=== PATIENT | male | born 1980 | race Caucasian/White ===

== ENCOUNTER 2023-07-01 23:39 | Emergency (ER) | payer BC, SELFPAY ==
--- NOTE | 2023-07-01 | ECG_ITS ---
Test Reason : HYPERTENSION Blood Pressure : / mmHG Vent. Rate : 083 BPM Atrial Rate : 083 BPM P-R Int : 176 ms QRS Dur : 090 ms QT Int : 356 ms P-R-T Axes : 024 021 029 degrees QTc Int : 418 ms Normal sinus rhythm Nonspecific ST and T wave abnormality Abnormal ECG No previous ECGs available Referred By: Generic ED Physician Electronically Signed By:JOSELINE ORTIZ MD
[2023-07-01 23:41] VITALS: BP 182/106; PULSE 92; RESP 18; TEMP 36.8; O2SAT 98; BMI 33.8
[2023-07-02] LABS: MANUAL DIFF FLAG NO
[2023-07-02 00:04] LABS: Basophils Percent Auto 0.5 % (0-2); Eosinophils Absolute Auto 0.1 X10*3/uL (0.0-0.4); Eosinophils Percent Auto 1.3 % (0-4); Hematocrit 43.9 % (42.0-52.0); Hemoglobin 14.2 g/dl (14.0-18.0); Imm Gran Abs Auto 0.02 X10*3/uL (0.00-0.03); Imm Gran Pct Auto 0.2 % (0.0-0.4); Lymphocytes Absolute Auto 2.3 X10*3/uL (1.2-4.9); Lymphocytes Percent Auto 26.6 % (20-40); Mean Corpuscular HGB Conc 32.3 g/dl (31.0-36.0); Mean Corpuscular Volume 77.4 fL (80.0-98.0); Mean Platelet Volume 9.6 fL (9.4-12.4); Monocytes Absolute Auto 0.8 X10*3/uL (0.1-1.2); Monocytes Percent Auto 8.6 % (2-11); Neutrophils Absolute Auto 5.5 x10*3/uL (2.0-8.3); Neutrophils Percent Auto 62.8 % (45-73); Platelet Count 258 X10*3/uL (160-400); Red Blood Count 5.67 X10*6/uL (4.60-5.80); Red Cell Distribution Width 13.8 % (11.0-16.0); White Blood Count 8.8 X10*3/uL (4.8-10.8)
[2023-07-02 00:15] LABS: Alanine Aminotransferase 26 U/L (0-40); Albumin Level 4.3 g/dL (3.5-5.0); Alkaline Phosphatase 113 U/L (39-117); Anion Gap 14 (12-20); Aspartate Amino Transferase 15 U/L (5-37); Bilirubin Total 0.6 mg/dL (0.0-1.0); Blood Urea Nitrogen 11 mg/dL (9-16); Calcium 9.5 mg/dL (8.4-10.2); Carbon Dioxide 24 mmol/L (22-29); Chloride 108 mmol/L (96-108); Creatinine Clr Calc Pharmacy 109.5; Estimated Glomerular Filt Rate > 60; Glucose Random 145 mg/dL (60-115); Sodium 142 mmol/L (135-145); Total Protein 7.5 g/dL (6.5-8.0)
--- NOTE | 2023-07-02 02:11 | ED_ITS ---
HPI - General Adult General Chief complaint: General Medical Stated complaint: high BP Time Seen by Provider: 07/02/23 02:04 Source: patient Mode of arrival: ambulatory Limitations: no limitations History of Present Illness HPI narrative: Patient history of hypertension on benazepril 20 and amlodipine 10 mg for long time with stable blood pressure for last 1 week notice heaviness in the head checked his blood pressure was elevated to 182/106 on arrival. No nausea no vomiting patient fairly compliant with medication patient denies any caffeine intake or NSAID intake Related Data Previous Rx's Medication Instructions Recorded metoprolol tartrate 50 mg tablet 50 mg PO BID #60 tabs 07/02/23 (Lopressor) Allergies Allergy/AdvReac Type Severity Reaction Status Date / Time No Known Allergies Allergy Verified 07/01/23 23:45 [No Known Allergies*] Review of Systems 2 Review of Systems: Yes all other systems are reviewed and are negative [facility] Social History Social History Smoked in Last 30 Days: No Use of substances other than those prescribed or required for medical reasons: No Advance Directives: No Advance Directives Information Provided: No Physical Exam ED Vital Signs: Vital Signs - 24 hr 07/01/23 23:41 07/02/23 02:16 07/02/23 03:33 Temperature 98.2 F 97.9 F Pulse Rate 92 72 83 Respiratory Rate 18 14 Blood Pressure 182/106 H 162/102 H 130/90 H Pulse Oximetry 98 97 Oxygen Delivery Method Room Air Room Air BMI result Body Mass Index 33.8 Appearance: Alert. Oriented X3. No acute distress. Eyes: PERRLA, No Nystagmus ENT: Pharynx normal. Oral Mucosa moist Neck: Normal inspection. Neck supple. CVS: Normal heart rate and rhythm. Pulses normal. Respiratory: No respiratory distress. Equal air entry bilateral, no wheezing/rales/rhonchi Abdomen: Soft and nontender. Bowel sounds are present, no mass palpable, no CVA tenderness Skin: Skin warm and dry. Normal skin color. Normal skin turgor. Extremities: No lower extremity edema. No calf tenderness Neuro: Oriented X 3. No motor deficit. No sensory deficit.No cerebellar signs , cranial nerves II-XII intact Medications Administered Discontinued Medications Generic Name Dose Route Start Last Admin Trade Name Freq PRN Reason Stop Dose Admin Metoprolol Tartrate 50 mg 07/02/23 02:29 07/02/23 02:50 Metoprolol Tartrate 50 Mg Tablet PO 07/02/23 02:30 50 mg ONCE ONE Administration Protocol Medical Decision Making Medical Decision Making [facility] Narrative: Patient has longstanding history of hypertension came for uncontrolled hypertension which got improved after adding beta yobani Lopressor discharge patient home in the to continue his previous blood pressure medications Lab Data [facility] Lab Attestation statement: I reviewed the patient's lab results. 07/01/23 23:56 07/01/23 23:56 Labs: Lab Results 07/01/23 Range/Units 23:56 WBC 8.8 (4.8-10.8) X10*3/uL RBC 5.67 (4.60-5.80) X10*6/uL Hgb 14.2 (14.0-18.0) g/dl Hct 43.9 (42.0-52.0) % MCV 77.4 L (80.0-98.0) fL MCH 25.0 L (27.0-33.0) pg MCHC 32.3 (31.0-36.0) g/dl RDW 13.8 (11.0-16.0) % Plt Count 258 (160-400) X10*3/uL MPV 9.6 (9.4-12.4) fL Immature Gran % (Auto) 0.2 (0.0-0.4) % Neut % (Auto) 62.8 (45-73) % Lymph % (Auto) 26.6 (20-40) % [place] % (Auto) 8.6 (2-11) % Eos % (Auto) 1.3 (0-4) % Baso % (Auto) 0.5 (0-2) % Lymph # (Auto) 2.3 (1.2-4.9) X10*3/uL [place] # (Auto) 0.8 (0.1-1.2) X10*3/uL Eos # (Auto) 0.1 (0.0-0.4) X10*3/uL Baso # (Auto) 0.0 (0.0-0.2) X10*3/uL Abs Immat Gran (auto) 0.02 (0.00-0.03) X10*3/uL Absolute Neuts (auto) 5.5 (2.0-8.3) x10*3/uL Absolute Nucleated RBC 0.000 (0.0-0.012) X10*3/uL Nucleated RBC % (auto) 0.0 (0.0-0.2) /100WBC Sodium 142 (135-145) mmol/L Potassium 4.0 (3.3-5.1) mmol/L Chloride 108 (96-108) mmol/L Carbon Dioxide 24 (22-29) mmol/L Anion Gap 14 (12-20) BUN 11 (9-16) mg/dL Creatinine 0.99 (0.5-1.4) mg/dL Estim Creat Clear Calc 109.5 Estimated GFR > 60 Random Glucose 145 H (60-115) mg/dL Calcium 9.5 (8.4-10.2) mg/dL Total Bilirubin 0.6 (0.0-1.0) mg/dL AST 15 (5-37) U/L ALT 26 (0-40) U/L Alkaline Phosphatase 113 (39-117) U/L Total Protein 7.5 (6.5-8.0) g/dL Albumin 4.3 (3.5-5.0) g/dL Independent Interpretation I performed an independent interpretation of an: EKG Interpretation: Normal sinus rhythm heart rate 83 beats per minute normal interval normal axis no acute ischemic changes Discharge Plan Discharge Clinical Impression: Hypertension Patient Disposition: Home, Self-Care Instructions: Chronic Hypertension (ED) Additional Instructions: Continue blood pressure medication Decrease salt intake Add metoprolol 50 mg twice daily for better control of blood pressure blood pressure should be less than 135/85 Follow with PCP Prescriptions: New metoprolol tartrate [Lopressor] 50 mg tablet 50 mg PO BID Qty: 60 0RF Interventions: ED Discharge Assessment Last Done: 07/02/23 03:48 Discharge Date/Time: 07/02/23 03:49
[2023-07-02 02:16] VITALS: BP 162/102; PULSE 72; RESP 14; TEMP 36.6; O2SAT 97
[2023-07-02] MEDS: Metoprolol Tartrate 50 MG TABLET PO (02:50)
--- OUTSIDE RECORDS SUMMARY | 2023-07-02 02:53 | XMS_ITS | Continuity of Care Document ---
Author Name Unknown Organization [facility] em Address Unknown Care Team Providers Care Business Machine Mechanic Name Role Phone Shameka Don DO Primary Care Physician Encounter [facility] [place] Date(s): 11/12/20 - 11/19/20 [facility] Attending Physician: Jarrett Moran MD Admitting Physician: Jarrett Moran MD Referring Physician: Shameka Don DO Allergies, Adverse Reactions, Alerts Substance Reaction Severity Status NKA Active Medications amlodipine-benazepril 2.5 mg-10 mg oral capsule 1 capsule, By Mouth, Daily, # 30 capsule, 0 Refills, Maintenance, 09/29/20 14:27:00 EDT, Capsule, Partial fill upon patient request if the prescription is for a schedule II opioid drug. Start Date: 09/29/20 Status: Ordered atorvastatin 10 mg oral tablet 1 tablet = 10 mg, By Mouth, Daily, # 30 tablet, 0 Refills, Maintenance, 09/29/20 14:26:00 EDT, Partial fill upon patient request if the prescription is for a schedule II opioid drug. Start Date: 09/29/20 Status: Ordered Colace sodium 100 mg oral capsule 100 mg, 1, capsule, By Mouth, 2 times a day, PRN, # 20 capsule, Refills 0, Tot. Refills 0, Maintenance, for constipation, 10/05/20 8:08:00 EDT, Route to Pharmacy Electronically, [facility]/pharmacy #[id number], Partial fill upon patient request if the prescription... Start Date: 10/05/20 Status: Ordered EPINEPHrine (OP) 0 Refills, Maintenance, 2 Start Date: 09/29/20 Status: Ordered ibuprofen 600 mg oral tablet 1 tablet = 600 mg, By Mouth, Every 8 hours, Take with food, # 15 tablet, 0 Refills, Maintenance, 01/27/15 11:09:41, Tablet Start Date: 01/27/15 Stop Date: 02/01/15 Status: Ordered Janumet XR 50 mg-1000 mg oral tablet, extended release 1 tablet, By Mouth, Daily in PM, # 30 tablet, 0 Refills, Maintenance, 09/29/20 14:26:00 EDT, ER Tablet, Partial fill upon patient request if the prescription is for a schedule II opioid drug. Start Date: 09/29/20 Status: Ordered montelukast 10 mg oral tablet 10 mg, 1, tablet, By Mouth, Daily, Refills 0, Maintenance, 09/29/20 14:27:00 EDT, Partial fill uponpatient request if the prescription is for a schedule II opioid drug. Start Date: 09/29/20 Status: Ordered oxyCODONE 5 mg oral tablet 5 mg, 1, tablet, By Mouth, Every 4 hours, PRN, you may filll this prescription for fewer pills. MASSpat reviewed, # 10 tablet, Refills 0, Tot. Refills 0, Maintenance, Pain , Severe, 10/05/20 8:08:00 EDT, Route to Pharmacy Electronically, [facility]... Start Date: 10/05/20 Status: Ordered Vital Signs Most recent to oldest [Reference Range]: 1 Height 172 cm (11/12/20 12:53 PM) Oxygen Saturation [94-100 %] 95 % (11/12/20 12:53 PM) Pulse Rate [55-90 bpm] 96 bpm *H* (11/12/20 12:53 PM) Blood Pressure [90-138/55-84 mm Hg] 130/ 78mm Hg (11/12/20 12:53 PM) Respiratory Rate [16-30 br/min] 16 br/mi n (11/12/20 12:53 PM) Blood pressure sites Arm, left (11/12/20 12:53 PM) Medical Equipment Implanted Date:10/05/20Target Site:[employer] Description Quantity MRI Company Model PLUG PERFIX LIGHTWEIGHT SM - BARD ([id number]) 1 Bard Unknown BRICE:{01}[id number] Assigning Author ity:FDA
--- OUTSIDE RECORDS SUMMARY | 2023-07-02 02:53 | XMS_ITS | Continuity of Care Document ---
Author Name Unknown Organization [facility] em Address Unknown Care Team Providers Care Seat Cover Cutter Name Role Phone Shameka Don DO Primary Care Physician Encounter [facility] [place] Date(s): 11/12/20 - 12/12/20 [facility] Attending Physician: Chapo Parikh Admitting Physician: Chapo Parikh Referring Physician: Chapo Parikh Allergies, Adverse Reactions, Alerts Substance Reaction Severity [...] 8:08:00 EDT, Route to Pharmacy Electronically, [facility]/pharmacy #[id number], Partial fill upon patient request if the [...] 8:08:00 EDT, Route to Pharmacy Electronically, [facility]/pharmacy... Start Date: 10/05/20 Status: Ordered Medical Equipment Implanted Date:10/05/20Target Site:[employer] Description Quantity MRI Company Model PLUG PERFIX LIGHTWEIGHT SM - BARD ([id number]) 1 Bard Unknown BRICE:{01}[id number] Assigning Author ity:FDA
--- OUTSIDE RECORDS SUMMARY | 2023-07-02 02:53 | XMS_ITS | Continuity of Care Document ---
Author Name Unknown Organization [facility] ry Address [address] [place] [address]- Care Team Providers Care Avionics Safety Inspector Name Role Phone Arian Shameka APPLE Primary Care Physician En[facility] [place] Date(s): 09/30/20 - 10/30/20 [facility] [address] [place] [address]- Allergies, Adverse Reactions, Alerts Substance Reaction Severity [...] 10/05/20 8:08:00 EDT, Route to Pharmacy Electronically, [facility]/pharmacy #[id number], Partial fill upon patient request if the [...] may filll this prescription for fewer pills. Daryl reviewed, # 10 tablet, Refills 0, Tot. Refills 0, Maintenance, Pain , Severe, 10/05/20 8:08:00 EDT, Route to Pharmacy Electronically, [facility]/pharmacy... Start Date: 10/05/20 Status: Ordered Medical Equipment Implanted Date:10/05/20Target Site:[employer] Description Quantity MRI Company Model PLUG PERFIX LIGHTWEIGHT SM - BARD ([id number]) 1 Bard Unknown BRICE:{01}[id number] Assigning Author ity:FDA
--- OUTSIDE RECORDS SUMMARY | 2023-07-02 02:53 | XMS_ITS | Continuity of Care Document ---
Author Name Unknown Organization [facility] ter Address [address] [place] [address]- Care Team Providers Care Belt Builder Helper Name Role Phone Shameka Don DO Primary Care Physician [place] [facility] [place]/08/21 - 06/08/[address] [address] Attending Physician: Shameka Don DO Allergies, Adverse Reactions, [...] 10/05/20 8:08:00 EDT, Route to Pharmacy Electronically, [facility]/pharmacy #[id number], Partial fill upon patient request if the [...] 10/05/20 8:08:00 EDT, Route to Pharmacy Electronically, [facility]/pharmacy... Start Date: 10/05/20 Status: Ordered Medical Equipment Implanted Date:10/05/20Target Site:[employer] Description Quantity MRI Company Model PLUG PERFIX LIGHTWEIGHT SM - BARD ([id number]) 1 Bard Unknown BRICE:{01}[id number] Assigning Author ity:FDA
--- OUTSIDE RECORDS SUMMARY | 2023-07-02 02:53 | XMS_ITS | Continuity of Care Document ---
Author Name Unknown Organization [facility] em Address Unknown Care Team Providers Care Pin Drafting Machine Operator Name Role Phone Shameka Don DO Primary Care Physician En[place] [facility] Date(s): 08/23/20 - 09/29/20 [facility] Attending Physician: Jarrett Moran MD Admitting Physician: [...] opioid drug. Start Date: 09/29/20 Status: Ordered EPINEPHrine (OP) 0 Refills, Maintenance, [...]
--- OUTSIDE RECORDS SUMMARY | 2023-07-02 02:53 | XMS_ITS | Continuity of Care Document ---
Author Name Unknown Organization [facility] [place] em Address Unknown Care Team Providers Care Rn Care Transition Name Role Phone Shameka Don DO Primary Care Physician Encounter [facility] [place] Date(s): 10/13/20 - 10/20/20 [facility] Attending Physician: Jarrett Moran MD Admitting Physician: [...] 10/05/20 8:08:00 EDT, Route to Pharmacy Electronically, [facility]/pharmacy #[id number], Partial fill upon patient request if the [...] oldest [Reference Range]: 1 Height 172 cm (10/13/20 10:22 AM) Oxygen Saturation [94-100 %] 96 % (10/13/20 10:22 AM) Pulse Rate [55-90 bpm] 113 bpm *H* (10/13/20 10:22 AM) Blood Pressure [90-138/55-84 mm Hg] 126/ 80mm Hg (10/13/20 10:22 AM) Respiratory Rate [16-30 br/min] 16 br/mi n (10/13/20 10:22 AM) Blood pressure sites Arm, right (10/13/20 10:22 AM) Medical Equipment Implanted Date:10/05/20Target Site:[facility] Description Quantity MRI Company Model PLUG PERFIX LIGHTWEIGHT SM - BARD ([id number]) 1 Bard Unknown BRICE:{01}[id number] Assigning Author ity:FDA
--- OUTSIDE RECORDS SUMMARY | 2023-07-02 02:53 | XMS_ITS | Continuity of Care Document ---
Author Name Unknown Organization [facility] Address [address] [place] [address]- Care Team Providers Care Band Head Saw Operator Name Role Phone Arian APPLEShameka Carlito Primary Care Physician Encounter [facility] [place] Date(s): 10/05/20 - 10/05/[address] [address]- [phone] Discharge Disposition: A-D/C Home Attending Physician: Jarrett Moran MD Admitting Physician: Jarrett Moran MD Referring Physician: Jarrett Moran MD Allergies, Adverse Reactions, Alerts Substance Reaction Severity [...] 10/05/20 8:08:00 EDT, Route to Pharmacy Electronically, [facility]/pharmacy #[id number], Partial fill upon patient request if the prescription... Start Date: 10/05/20 Status: Ordered EPINEPHrine (OP) 0 Refills, Maintenance, 2 Start Date: 09/29/20 Status: Ordered FENTanyl Inj 50 mcg, Injection, IV Push Slowly, Every 5 minutes for 4 doses/times, in PACU ONLY, Hold for: RR less than 8 or over-sedation, PRN for Pain , Severe, Repeat until Pain Score is less than or equal to 2, Routine, 10/05/20 7:56:00 EDT, Stop date Limited... Start Date: 10/05/20 Stop Date: 10/05/20 Status: Discontinued ibuprofen 600 mg oral tablet 1 tablet [...] 10/05/20 8:08:00 EDT, Route to Pharmacy Electronically, [facility]/pharmacy... Start Date: 10/05/20 Status: Ordered OxyCODONE IR Tablet 5 mg, Tablet, By Mouth, Every 4 hours, in PACU ONLY, if patient can tolerate PO, PRN for Pain , Mild, Routine, 10/05/20 7:56:00 EDT Start Date: 10/05/20 Stop Date: 10/05/20 Status: Discontinued Vital Signs Most recent to oldest [Reference Range]: 1 2 3 Height 172 cm (10/05/20 7:16 AM) Weight 102.8 kg (10/05/20 7:16 AM) Oxygen Saturation [94-100 %] 94 % (10/05/20 9:30 AM) 97 % (10/05/20 9:15 AM) 98 % (10/05/20 9:10 AM) Pulse Rate [55-90 bpm] 88 bpm (10/05/20 7:16 AM) Body Mass Index [18.5-24.99] 34.75 *>HHI* (10/05/20 7:16 AM) Blood Pressure [90-138/55-84 mm Hg] 120/86mm Hg (10/05/20 9:30 AM) 134/89mm Hg (10/05/20 9:15 AM) 125/81mm Hg (10/05/20 9:10 AM) Respiratory Rate [16-30 br/min] 13 br/min *L* (10/05/20 9:30 AM) 20 br/min (10/05/20 9:26 AM) 16 br/min (10/05/20 9:25 AM) Temperature [96.8-100.4 DegF] 97.4 DegF (10/05/20 8:15 AM) 97.4 DegF (10/05/20 7:16 AM) Liters per Minute 2 L/min (10/05/20 9:10 AM) 2 L/min (10/05/20 8:55 AM) 6 L/min (10/05/20 8:40 AM) Mode of Delivery (Oxygen) Room air (10/05/20 9:30 AM) Room air (10/05/20 9:15 AM) Nasal cannula (10/05/20 9:10 AM) Blood pressure sites Arm, right (10/05/20 9:30 AM) Arm, right (10/05/20 9:15 AM) Arm, right (10/05/20 9:10 AM) Temperature Route Temporal (10/05/20 8:15 AM) Temporal (10/05/20 7:16 AM) Dry Weight 102.8 kg (10/05/20 7:16 AM) Weight Obtained Via Standing scale (10/05/20 7:16 AM) Dry Weight Obtained Via Standing scale (10/05/20 7:16 AM) Medical Equipment Implanted Date:3/30/21Target Site:[employer] Description Quantity MRI Company Model PLUG PERFIX LIGHTWEIGHT SM - BARD ([id number]) 1 Bard Unknown BRICE:{01}[id number] Assigning Author ity:FDA
--- OUTSIDE RECORDS SUMMARY | 2023-07-02 02:53 | XMS_ITS | Continuity of Care Document ---
Author Name Unknown Organization [facility] ter Address [address] [place] [address]- Care Team Providers Care Wire Hanger Name Role Phone Shameka Don DO Primary Care Physician Encounter [facility] [place] Date(s): 08/14/22 - 10/01/[address] [address]- Attending Physician: Natalie Beal Admitting Physician: Natalie Beal Referring Physician: Natalie Beal Allergies, Adverse Reactions, Alerts No Known Allergies Medications amlodipine-benazepril 2.5 mg-10 mg oral capsule [...] Maintenance, 2 Start Date: 09/29/20 Status: Ordered Janumet XR 50 mg-1000 mg [...] opioid drug. Start Date: 09/29/20 Status: Ordered Problem List Condition Confirmation Course Effective Dates Status Health St atus Informant Obese class II Confirmed Active Implantable Device List Procedure Provider Procedure Date Device Type Site Repair Hernia Umbilical Open Luisa MARC, Jarrett Worrell 10/05/20 U nknown [employer] Device Identifier Serial Number Lot or Batch Number Manufacturing Date Expiration Date Distinct Identification Code MRI Safety Implantable Status Assigning Authority [id number] Unknown Unknown Unknown 01/03/25 Unknown Unknown Active GS1 Patient Care team information Care Team Personnel Name: Shameka Don DO Position: S Physician (General Medicine) Member Role: PCP Address: Address: [address] [place] [address] [place] [address]- Care Team Related Persons Name: ARSH MEEKS Name: ARLIN KEENE Address: [place] [address]
--- OUTSIDE RECORDS SUMMARY | 2023-07-02 02:53 | XMS_ITS | Continuity of Care Document ---
Author Name Unknown Organization [facility] ry Address [address] [place] [address]- Care Team Providers Care Hog Counter Name Role Phone Arian Shameka APPLE Carlito Primary Care Physician Encounter [facility] [place] Date(s): 10/28/20 - 11/27/20 [facility] [address] [place] [address]- Allergies, Adverse Reactions, Alerts Substance Reaction Severity [...] 10/05/20 8:08:00 EDT, Route to Pharmacy Electronically, [facility]/pharmacy #[id number], Partial fill upon patient request if the [...] 10/05/20 8:08:00 EDT, Route to Pharmacy Electronically, [facility]/pharmacy... Start Date: 10/05/20 Status: Ordered Medical Equipment Implanted Date:10/05/20Target Site:[employer] Description Quantity MRI Company Model PLUG PERFIX LIGHTWEIGHT SM - BARD ([id number]) 1 Bard Unknown BRICE:{01}[id number] Assigning Author ity:FDA
--- OUTSIDE RECORDS SUMMARY | 2023-07-02 02:53 | XMS_ITS | Continuity of Care Document ---
Author Name Unknown Organization [facility] ry Address [address] [place] [address]- Care Team Providers Care Psych Coordinator Name Role Phone Arian Shameka APPLE Primary Care Physician [place] [facility] [place](s): 10/06/20 - 11/05/20 [facility] [address] [place] [address]- Allergies, Adverse Reactions, Alerts Substance Reaction Severity [...] 10/05/20 8:08:00 EDT, Route to Pharmacy Electronically, [facility]/pharmacy #[id number], Partial fill upon patient request if the [...] 10/05/20 8:08:00 EDT, Route to Pharmacy Electronically, [facility]/pharmacy... Start Date: 10/05/20 Status: Ordered Medical Equipment Implanted Date:10/05/20Target Site:[employer] Description Quantity MRI Company Model PLUG PERFIX LIGHTWEIGHT SM - BARD ([id number]) 1 Bard Unknown BRICE:{01}[id number] Assigning Author ity:FDA
[2023-07-02 03:33] VITALS: BP 130/90; PULSE 83
== END 2023-07-02 03:49 | disposition home or self-care (01) ==
PROVIDERS: Emergency Provider Internal Medicine
DX: I10 Essential (primary) hypertension (principal); Z79.899 Other long term (current) drug therapy
CPT/HCPCS: 36415; 80053; 85025; 93005; 99283; 99284

== ENCOUNTER → 2023-07-01 23:49 | Outpatient (BNV) | payer BC, SELFPAY | PROVIDERS: Emergency Provider Internal Medicine; Visit Provider Internal Medicine Cardiovascular Disease | DX: R94.31 Abnormal electrocardiogram [ECG] [EKG] (principal) | CPT/HCPCS: 93010 ==

== ENCOUNTER 2024-11-13 08:19 | Outpatient (AMB) | payer BC, SELFPAY ==
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
[2024-11-13 08:26] VITALS: BP 128/72; PULSE 80; O2SAT 98; BMI 32.2
--- OUTSIDE RECORDS SUMMARY | 2024-11-13 08:37 | XMS_ITS | Encounter Summary ---
Author Organization [facility] Address [address] [place] [address] Care Team Providers Care Entry Level Accounting Clerk Name Role Phone Pcp, No Primary Care Provider Unavailabl e Encounter Details Date Type Department Care Team (Late st Contact Info) Description 02/06/2020 Lab Requisition EM Lab DOC: Delroy Ca [address] [place] [phone] Ronen Juarez PA-C [address] [place] [address] Encounter for laboratory testing for COVID-19 virus Social History Tobacco Use Types Packs/Day Years Used Date Smoking Tobacco: Never Assessed Sex and Gender Information Value Date Recorded Sex Assigned at Male 06/03/2024 2:34 PM EST Legal Sex Male 5:01 PM EDT Gender Identity Male 06/03/2024 2:34 PM EST Sexual Orientation Heterosexual (straight) 06/04 2:10 PM EST documented as of this encounter Plan of Treatment Upcoming Encounters Date Type Department Care Team (Late st Contact Info) Description 11/19/2024 1:00 PM EDT [facility] [address] [address] Enedelia Boggs, OT [address] [place] [address] 11/26/2024 1:00 PM EDT [facility] [address] [place] [phone] Enedelia Boggs OT [address] [place] [address] 12/03/2024 1:00 PM EDT [facility] [address] [place] [address] Enedelia Boggs, OT [address] [place] [address] documented as of this encounter Procedures Procedure Name Priority Date/Time Associated Diagnosis Comments (REPORT) SARS COV-2 RNA (COVID-19), QUAL Routine 02/06/2020 7:06 AM EDT Encounter for laboratory testing for COVID-19 virus [ICD-10-CM] documented in this encounter Results * SARS CoV-2 RNA (COVID-19), Qual (02/06/2020 7:06 AM EDT) [facility] SARS CoV 2 RNA, Qual NOT DETECTED NOT DETECTED 02/07/2020 3:00 PM EDT [facility] Comment: A Not Detected (negative) test result for this test means that SARS-CoV-2 RNA was not present in the specimen above the limit of detection. A negative result does not rule out the possibility of COVID-19 and should not be used as the sole basis for treatment or patient management decisions. If COVID-19 is still suspected, based on exposure history together with other clinical findings, re-testing should be considered in consultation with public health authorities. Laboratory test results should always be considered in the context of clinical observations and epidemiological data in making a final diagnosis and patient management decisions. REFERENCE RANGE: ??NOT DETECTED This patient specimen was tested using an FDA EUA pooling method. Negative results from pooled testing should not be treated as definitive. ??If the patient's clinical signs and symptoms are inconsistent with a negative result or results are necessary for patient management, then the patient should be considered for individual testing. Specimens with low viral loads may not be detected in sample pools due to the decreased sensitivity of pooled testing. Please review the Fact Sheets and FDA authorized labeling available for health care providers and patients using the following websites: https://www.[employer].com/home/Covid-19/HCP/QuestLDTP/ fact-sheet https://www.[employer]/home/Covid19/Patients/QuestLDTP/ fact-sheet.html This test has been authorized by the FDA under an Emergency Use Authorization (EUA) for use by authorized laboratories. Due to the current public health emergency, [facility] is receiving a high volume of samples from a wide variety of swabs and media for COVID-19 testing. In order to serve patients during this public health crisis, samples from appropriate clinical sources are being tested. Negative test results derived from specimens received in non-commercially manufactured viral collection and transport media, or in media and sample collection kits not yet authorized by FDA for COVID-19 testing should be cautiously evaluated and the patient potentially subjected to extra precautions such as additional clinical monitoring, including collection of an additional specimen. Methodology: ??Nucleic Acid Amplification Test (NAAT) includes PCR or TMA ?? Additional information about COVID-19 can be found at the [facility] website: www.[employer].LumiFold/Covid19. Microbiology Nasopharyngeal swab / Unknown 02/06/2020 7:06 AM EDT 02/06/2020 7:06 AM EDT Narrative [facility] - 02/07/2020 3:00 PM EDT Performing Organization Information: ?Site ID: [id number] ?Name: [employer] ?Address: [address] [place] [address],[place] [address] ?Director: EMIR KINGSTON MD [facility] License number [id number] Ronen Juarez PA-C BODY FLUIDS AND STOOLS OR DERABLES Final Result [facility] documented in this encounter Visit Diagnoses Diagnosis Encounter for laboratory testing for COVID-19 virus documented in this encounter Care Teams Entry Level Accounting Clerk Relationship Specialty Start Date End Date Pcp, No PCP - General General Medicine 06/20/24 documented as of this encounter
--- OUTSIDE RECORDS SUMMARY | 2024-11-13 08:37 | XMS_ITS | Clinical Summary ---
Author Organization [facility] Address [address] [place] [address] Care Team Providers Care President Mortgage Company Name Role Phone Pcp, No Primary Care Provider Unavailabl e Allergies No known active allergies Medications celeCOXIB (CeleBREX) 100 MG capsuleIndicatio ns:Radiculopathy , lumbosacral region Take 1 capsule (100 mg total) by mouth 2 (two) times a day. 60 capsule 11/07/2024 12/08/19 25 Active TiZANidine (ZANAFLEX) 4 MG capsuleIndicatio ns:Radiculopathy , lumbosacral region Take 1 capsule (4 mg total) by mouth 3 (three) times a day as needed for muscle spasms. 30 capsule 11/07/2024 Active Active Problems Problem Noted Date Diagnosed Date Sacroiliitis 10/31/2024 Encounters Date Type Department Care Team Description 11/10/2024 2:30 PM EDT Office Visit [facility] [address] [phone] Papito Degroot MD Spondylosis of lumbosacral region without myelopathy or radiculopathy (Primary Dx) 11/07/2024 4:30 PM EDT Consult [facility] [address] [phone] Mir Robison PA Radiculopathy, lumbosacral region (Primary Dx) 10/31/2024 7:45 AM EDT Office Visit [facility] [address] [place] [address] Papito Degroot MD Spondylosis of lumbosacral region without myelopathy or radiculopathy (Primary Dx); Sacroiliitis; Bulge of lumbar disc without myelopathy 10/20/2024 1:00 PM EDT [facility] [address] [address] Enedelia Boggs OT Acute pain of left shoulder (Primary Dx) 10/14/2024 Scanned Document [facility] [address] [phone] Papito Degroot MD 10/14/2024 [facility] [address] [phone] Papito Degroot MD 10/13/2024 1:30 PM EDT [facility] [address] [address] Enedelia Boggs OT Shoulder stiffness, left (Primary Dx) 10/10/2024 7:30 AM EDT [facility] [address] [place] [address] [place] [address] Papito Degroot MD Radiculopathy, lumbosacral region (Primary Dx); Spondylosis of lumbosacral region without myelopathy or radiculopathy; Bulge of lumbar disc without myelopathy; Sacroiliitis 10/06/2024 1:30 PM EDT [facility] [address] [address] Enedelia Boggs OT Left shoulder pain, unspecified chronicity (Primary Dx) 09/22/2024 1:00 PM EDT [facility] [address] [address] Enedelia Boggs OT Left arm pain (Primary Dx) 09/17/2024 9:15 AM EDT [facility] [address] [phone] Papito Degroot MD Radiculopathy, lumbosacral region (Primary Dx); Spondylosis of lumbosacral region without myelopathy or radiculopathy; Bulge of lumbar disc without myelopathy 09/17/2024 Orders Only [facility] [address] [phone] Yolande Wray MD 09/15/2024 1:30 PM EDT [facility] [place] [phone] Enedelia Boggs OT Left arm pain (Primary Dx) 09/08/2024 8:20 AM EST Ancillary [facility] [place] [phone] 09/08/2024 8:15 AM EST [facility] [address] [address] Vin Amaya MD Traumatic incomplete tear of left rotator cuff, initial encounter (Primary Dx); Shoulder pain, unspecified chronicity, unspecified laterality 09/05/2024 Scanned Document [facility] [address] [facility] [address] [place] [phone] Vin Amaya MD from Last 3 Months Social History Tobacco Use Types Packs/Day Years Used Date Smoking Tobacco: Never Assessed Sex and Gender Information Value Date Recorded Sex Assigned at Male 06/03/2024 2:34 PM EST Legal Sex Male 5:01 PM EDT Gender Identity Male 06/03/2024 2:34 PM EST Sexual Orientation Heterosexual (straight) 06/04 2:10 PM EST Last Filed Vital Signs Vital Sign Reading Time Taken Comments Blood Pressure 118/85 10/31/2024 8:11 AM EDT Pulse 80 10/31/2024 8:11 AM EDT Temperature - - Respiratory Rate 18 10/31/2024 8:11 AM EDT Oxygen Saturation 99% 10/31/2024 8:11 AM EDT Inhaled Oxygen Concentration - - Weight - - Height - - Body Mass Index - - Plan of Treatment Upcoming Encounters Date Type Department Care Team (Late st Contact Info) Description 11/19/2024 1:00 PM EDT [facility] [address] [place] [address] Enedelia Boggs, OT [address] [place] [phone] 11/26/2024 1:00 PM EDT [facility] [address] [place] [address] Enedelia Boggs, OT [address] [place], [place] [phone] 12/03/2024 1:00 PM EDT [facility] [address] [place] [address] Enedelia Boggs, OT [address] [place] [phone] Health Maintenance Due Date Last Done Comments Hepatitis C Virus Screening 1978 HIV Screening 09/14/1991 DTaP/Tdap/Td Vaccines (1 - Tdap) 1997 Hepatitis B Vaccines (1 of 3 - 19+ 3-dose series) 1997 Colonoscopy 09/14/2023 COVID-19 Vaccine (3 - 2023-2 5 season) 2024 09/17/2020, 08/20/2020 Influenza Vaccine 02/06/2025 05/26/2020 Pneumococcal Vaccine: Pediatric (0-5 Years) and At-Risk Patients (6 to 49 Years) Aged Out No longer eligible b ased on patient's age to complete this topic Goals Goal Patient Goal Type Associated Problems Recent Progress Patient-Stated? Author OT STG 1 Occupational Therapy On track( 025 7:08 AM EDT) No Enedelia Boggs OT Note: Decrease pain to < 2/10 to allow increased ability to sleep OT STG 2 Occupational Therapy On track( 025 7:08 AM EDT) No Enedelia Boggs OT Note: Increase active shoulder F to 140 to improve ability to reach overhead. OT STG 3 Occupational Therapy No Enedelia Boggs, YOLI Note: Increase active ability to reach behind back to tuck in shirt Procedures Procedure Name Priority Date/Time Associated Diagnosis Comments MRI EXTERNAL RESULT Routine 09/17/2024 1 0:20 AM EDT XR SHOULDER 2+ VIEWS-LEFT Routine 09/08/2024 8:22 AM EST Shoulder pain, unspecified chronicity, unspecified laterality from Last 3 Months Results * MRI External Result (09/17/2024 10:20 AM EDT) Anatomical Region Laterality Modality Magnetic Resonan ce us External Provider MD MEZA MRI ORDERABLES Final Re sult * XR Shoulder 2+ views-Left (09/08/2024 8:22 AM EST) Narrative [facility] - 09/08/2024 8:22 AM EST This exam was performed in office at [facility] and images reviewed by orthopedic provider. ??Any findings are documented within ambulatory encounter note on date of service. Vin MEZA DIAGNOSTIC IMAGING ORDERABL ES Final Result OA from Last 3 Months Insurance [facility] Care Teams President Mortgage Company Relationship Specialty Start Date End Date Pcp, No PCP - General General Medicine 06/20/24
--- OUTSIDE RECORDS SUMMARY | 2024-11-13 08:37 | XMS_ITS | Encounter Summary ---
Author Organization [facility] Address [address] [place] [address] Care Team Providers Care Pipe Fittings Molder Name Role Phone Pcp, No Primary Care Provider Unavailabl e Encounter Details Date Type Department Care Team (Late st Contact Info) Description 03/12/2020 Lab Requisition EM Lab DOC: Delroy Ca [address] [place] [phone] Ronen Juarez PA-C [address] [place] [address] Encounter for laboratory testing for COVID-19 virus [...] 11/19/2024 1:00 PM EDT [facility] [address] [address] Enedelia Boggs, OT [address] [place] [phone] 11/26/2024 1:00 PM EDT [facility] [address] [place] [phone] Enedelia Boggs OT [address] [place] [address] 12/03/2024 1:00 PM EDT [facility] [address] [place] [address] Enedelia Boggs, OT [address] [place] [address] documented as of this encounter Procedures Procedure Name Priority Date/Time Associated Diagnosis Comments (REPORT) SARS COV-2 RNA (COVID-19), QUAL Routine 03/12/2020 9:41 AM EDT Encounter for laboratory testing for COVID-19 virus [ICD-10-CM] documented in this encounter Results * SARS CoV-2 RNA (COVID-19), Qual (03/12/2020 9:41 AM EDT) [facility] SARS CoV 2 RNA, Qual NOT DETECTED NOT DETECTED 03/14/2020 9:[address] [facility] Comment: A Not Detected (negative) test [...] providers and patients using the following websites: https://www.[employer].com/home/Covid-19/HCP/QuestLDTP/ fact-sheet https://www.[employer]/home/Covid-19/Patients/QuestLDTP/ fact-sheet.html This test has been authorized by the FDA under an Emergency Use Authorization (EUA) for use by authorized laboratories. Due to the current public health emergency, [facility] is receiving a high volume of samples [...] about COVID-19 can be found at the [facility] website: www.[employer]/Covid19. Microbiology Nasopharyngeal swab / Unknown 03/12/2020 9:41 AM EDT 03/12/2020 9:41 AM EDT Narrative [facility] - 03/14/2020 9:00 AM EDT Performing Organization Information: ?Site ID: [id number] ?Name: [employer] ?Address: [address] [place] [address],[place] [address] ?Director: EMIR KINGSTON MD Performed at [facility] License number [id number] Ronen Juarez PA-C BODY FLUIDS AND STOOLS OR DERABLES Final Result [facility] documented in this encounter Visit Diagnoses Diagnosis Encounter for laboratory testing for COVID-19 virus documented in this encounter Care Teams Pipe Fittings Molder Relationship Specialty Start Date End Date Pcp, No PCP - General General Medicine 06/20/24 documented as of this encounter
--- OUTSIDE RECORDS SUMMARY | 2024-11-13 08:37 | XMS_ITS | Clinical Summary ---
Author Organization [facility] Address [address] [place] [address] Phone Care Team Providers Care Flame Annealing Machine Operator Name Role Phone Shameka Don DO Primary Care Provider Allergies Active Allergy Reactions Criticality Noted Date Comments Pollen Extracts 06/02/2024 Medications glimepiride (AMARYL) 2 mg tablet Take 1 tablet (2 mg total) by mouth 1 (one) time each day. 12/08/2023 Active Janumet XR 50-1,000 mg tablet, ER multiphase 24 hr Take by mouth 2 (two) times a day. 05/14/2024 Active atorvastatin (LIPITOR) 10 mg tablet Take 1 tablet (10 mg total) by mouth at bedtime. at bedtime. 04/20/2024 Active montelukast (SINGULAIR) 10 mg tablet Take 1 tablet (10 mg total) by mouth 1 (one) time each day. 05/14/2024 Active Mounjaro 2.5 mg/0.5 mL injection Inject 0.5 mL (2.5 mg total) under the skin every 7 (seven) days. 05/29/2024 Active cyclobenzaprine (FLEXERIL) 10 mg tablet Take 1 tablet (10 mg total) by mouth 3 (three) times a day if needed for muscle spasms for up to 10 days. 15 tablet 06/02/2024 Active Surgical History Surgery Date Site/Laterality Comments VASECTOMY 2006 PROCEDURE: [place] VASECTOMY UNI/BI SPX W/POSTOP SEMEN EXAMS Medical History Medical History Date Comments Asthma 01/31/2013 DX:Asthma Specified disorder of male g enital organs in diseases classified elsewhere 04/09/2007 DX:Specified disorder of mal e genital organs in diseases classified elsewhere; COMMENT: Dr. [facility] Tension headache 05/20/2010 DX:Tension head ache Asthma 01/31/2013 DX:Asthma Family History Medical History Relation Name Comments Other cancer Brother 1 throat Hypertension Father Relation Name Status Comments Brother 1 Brother 2 Father Alive Mother Alive Social History Tobacco Use Types Packs/Day Years Used Date Smoking Tobacco: Never Smokeless Tobacco: Never Alcohol Use Standard Drinks/Week Comments No 0 (1 standard drink = 0.6 oz pur e alcohol) Sex and Gender Information Value Date Recorded Sex Assigned at Male 06/02/2024 4:52 PM EST Legal Sex Male 12:59 AM EST Gender Identity Male 06/02/2024 4:52 PM EST Sexual Orientation Straight 06/02/2024 4: 52 PM EST Obstetrics History Last Filed Vital Signs Vital Sign Reading Time Taken Comments Blood Pressure 117/85 06/02/2024 4:44 PM EST Pulse 79 06/02/2024 4:44 PM EST Temperature 36.7 ??C (98.1 ??F) 06/02/2024 4:44 PM ES T Respiratory Rate 18 06/02/2024 4:44 PM EST Oxygen Saturation 97% 06/02/2024 4:44 PM EST Inhaled Oxygen Concentration - - Weight 97.5 kg (215 lb) 06/02/2024 4:44 PM EST Height 172.7 cm (5' 8 ) 06/02/2024 4:44 PM EST Body Mass Index 32.69 06/02/2024 4:44 PM EST Plan of Treatment Health Maintenance Due Date Last Done Comments Hepatitis B Vaccines (1 of 3 - 19+ 3-dose series) 1997 DTaP,Tdap,and Td Vaccines (2 - Td or Tdap) 08/29/2017 08/29/2007 COVID-19 Vaccine (2023-2 5 season) 2024 09/17/2020, 08/20/2020 Cholesterol Screening (Lipid Panel) 06/03/2024 Colorectal Cancer Screening: Colonoscopy 06/03/2024 Depression Screening 06/03/2024 HIV Screening 06/03/2024 Hepatitis C Screening 06/03/2024 Social Influencers of Health Screening 06/03/2024 Influenza Vaccine (Season Ended) 2025 05/01/2014 HIB Vaccines Aged Out No longer eligi ble based on patient's age to complete this topic HPV Vaccines Aged Out No longer eligi ble based on patient's age to complete this topic Hepatitis A Vaccines Aged Out No long er eligible based on patient's age to complete this topic IPV Vaccines Aged Out No longer eligi ble based on patient's age to complete this topic MMR Vaccines Aged Out No longer eligi ble based on patient's age to complete this topic Meningococcal ACWY Vaccine Aged Out N o longer eligible based on patient's age to complete this topic Meningococcal B Vaccine Aged Out No l onger eligible based on patient's age to complete this topic Pneumococcal Vaccine: Pediatrics (0 to 5 Years) and At-Risk Patients (6 to 64 Years) Aged Out No longer eligible b ased on patient's age to complete this topic RSV Immunization Patients Under 20 months Aged Out No longer eligible b ased on patient's age to complete this topic Varicella Vaccines Aged Out No longer eligible based on patient's age to complete this topic Insurance BENJAMÍN CHEATHAM BENJAMÍN CHEATHAM Care Teams Flame Annealing Machine Operator Relationship Specialty Start Date End Date Shameka Don DO [address] [phone] PCP - General Internal Medicine 06/02/24
--- OUTSIDE RECORDS SUMMARY | 2024-11-13 08:37 | XMS_ITS | Continuity of Care Document ---
Author Organization [facility] Address [address] [place] [id number] Insurance Providers Payer Plan Claims Address Claims Phone Policy Number Group Number Relation Employer Guarantor Name Guarantor Guarantor Address Guarantor Phone [employer] [address] [address] tel:[phone] [id number] [employer] PPO [id number] Self Tristen Galeana [address] [place] [id number] Problems Unknown Problems Results Test Value / Unit Interpretation Reference Ran LIPID PANEL, STANDARD[[id number]]?Collected: 11/04/2022 11:37 AM?Specimen Received: 11/04/2022 11:38 AM?Source: QuestFASTING:YESFASTING: YES CHOLESTEROL, TOTAL [[id number]] 128 mg/dL N 200 mg/dL HDL CHOLESTEROL [[id number]] 43 mg/dL N > OR = 40 mg/dL TRIGLYCERIDES [[id number]] 80 mg/dL N 150 mg/dL LDL-CHOLESTEROL [[id number]] 69 mg/dL (calc) N Reference range: or = 2 CHD risk factors. LDL-C is now calculated using the Yanick calculation, which is a validated novel method providing better accuracy than the Friedewald equation in the estimation of LDL-C. Aba BREWER et al. TOLU. 2013;310(19): 1062-6728 (http://education.QuestDiagnostics.com/faq/ZQE464) CHOL/HDLC RATIO [[id number]] 3.0 (calc) N 5 .0 (calc) NON HDL CHOLESTEROL [[id number]] 85 mg/dL (calc) N 130 mg/dL (calc) For patients with diabetes p marielle 1 major ASCVD risk factor, treating to a non-HDL-C goal of 100 mg/dL (LDL-C of <70 mg/dL) is considered a therapeutic option. ALBUMIN, RANDOM URINE W/CREA TININE[[id number]]?Collected: 11/04/2022 11:37 AM?Specimen Received: 11/04/2022 11:38 AM?Source: QuestFASTING:YESFASTING: YES CREATININE, RANDOM URINE [[id number]] 155 mg/dL N 20-320 mg/dL ALBUMIN, URINE [[id number]] 0.2 mg/dL N Se e Note: mg/dL Reference Range:Reference Ra ngeNot established ALBUMIN/CREATININE RATIO, RANDOM URINE [[id number]] 1 mcg/mg creat N 30 mcg/mg creat The ADA defines abnormalitie s in albuminexcretion as follows: Albuminuria Category Result (mcg/mg creatinine) Normal to Mildly increased OR = 300 The ADA recommends that at least two of threespecimens collected within a 3-6 month period beabnormal before considering a patient to bewithin a diagnostic category. COMPREHENSIVE METABOLIC PANE L[[id number]]?Collected: 11/04/2022 11:37 AM?Specimen Received: 11/04/2022 11:38 AM?Source: QuestFASTING:YESFASTING: YES GLUCOSE [[id number]] 94 mg/dL N 65-99 mg/ dL Fasting reference interval UREA NITROGEN (BUN) [[id number]] 14 mg/dL N 7-25 mg/dL CREATININE [[id number]] 1.06 mg/dL N 0.60-1 .29 mg/dL EGFR [[id number]] 89 mL/min/1.73m2 N > OR = 6 0 mL/min/1.73m2 The eGFR is based on the CKD -EPI 2020 equation. To calculate the new eGFR from a previous Creatinine or Cystatin Cresult, go to https://www.kidney.org/professionals/kdoqi/gfr%5Fcalculator BUN/CREATININE RATIO [[id number]] NOT APPLICABLE (calc) 6-22 (calc) SODIUM [54091664] 139 mmol/L N 135-146 mm ol/L POTASSIUM [[id number]] 4.2 mmol/L N 3.5-5.3 mmol/L CHLORIDE [03487086] 105 mmol/L N 98-110 m mol/L CARBON DIOXIDE [56642516] 25 mmol/L N 20 -32 mmol/L CALCIUM [41695911] 9.0 mg/dL N 8.6-10.3 mg/dL PROTEIN, TOTAL [[id number]] 6.9 g/dL N 6. 1-8.1 g/dL ALBUMIN [[id number]] 4.3 g/dL N 3.6-5.1 g /dL GLOBULIN [37302586] 2.6 g/dL (calc) N 1.9-3 .7 g/dL (calc) ALBUMIN/GLOBULIN RATIO [[id number]] 1.7 (calc) N 1.0-2.5 (calc) BILIRUBIN, TOTAL [00114921] 1.0 mg/dL N 0.2-1.2 mg/dL ALKALINE PHOSPHATASE [40496317] 82 U/L N 36-130 U/L AST [34106930] 15 U/L N 10-40 U/L ALT [[id number]] 24 U/L N 9-46 U/L HEMOGLOBIN A1c[496]?Collected: 11/04/2022 11:37 AM?Specimen Received: 11/04/2022 11:38 AM?Source: QuestFASTING:YESFASTING: YES HEMOGLOBIN A1c [[id number]] 8.1 % of total Hgb H 5.7 % of total Hgb For someone without known di abetes, a hemoglobin B4swmfjd of 6.5% or greater indicates that they may have diabetes and this should be confirmed with a follow-up test. For someone with known diabetes, a value 7% indicates that their diabetes is well controlled and a value greater than or equal to 7% indicates suboptimal control. A1c targets should be individualized based on duration of diabetes, age, comorbid conditions, and other considerations. Currently, no consensus exists regarding use ofhemoglobin A1c for diagnosis of diabetes for children. Clinical PDF Report [id number][ClinicalPDFReport1]?Collected: 11/04/2022 11:37 AM?Specimen Received: 11/04/2022 11:38 AM?Source: QuestFASTING:YESFASTING: YES Clinical PDF Report [id number] [ClinicalPDFReport1] TSERING Allergies, adverse reactions, alerts No known allergies and adverse reactions Medications No administered medications reported Vital Signs No vital signs reported Social History No smoking Hx information available
--- OUTSIDE RECORDS SUMMARY | 2024-11-13 08:37 | XMS_ITS | Encounter Summary ---
Author Organization [facility] Address [address] [place] [address] Care Team Providers Care Supervisor Newspaper Deliveries Name Role Phone Pcp, No Primary Care Provider Unavailabl e Encounter Details Date Type Department Care Team (Late st Contact Info) Description 06/11/2020 Lab Requisition EM Lab DOC: Delroy Ca [address] [place] [phone] Ronen Juarez PA-C [address] [place] [address] Encounter for laboratory testing for COVID-19 virus [...] 11/19/2024 1:00 PM EDT [facility] [address] [address] Enedelia Boggs, OT [address] [place] [address] 11/26/2024 1:00 PM EDT [facility] [address] [place] [phone] Enedelia Boggs OT [address] [place] [address] 12/03/2024 1:00 PM EDT [facility] [address] [place] [address] Enedelia Boggs, OT [address] [place] [address] documented as of this encounter Procedures Procedure Name Priority Date/Time Associated Diagnosis Comments (REPORT) SARS COV-2 RNA (COVID-19), QUAL Routine 06/11/2020 7:06 AM EST Encounter for laboratory testing for COVID-19 virus [ICD-10-CM] documented in this encounter Results * SARS CoV-2 RNA (COVID-19), Qual (06/11/2020 7:06 AM EST) [facility] SARS CoV 2 RNA, Qual NOT DETECTED NOT DETECTED 06/15/2020 6:00 PM EST [facility] Comment: A Not Detected (negative) test result for this test means that SARS- CoV-2 RNA was not present in the specimen above the limit of detection. A negative result does not rule out the possibility of COVID-19 and should not be used as the sole basis for treatment or patient management decisions. ??If COVID-19 is still suspected, based on exposure history together with other clinical findings, re-testing should be considered in consultation with public health authorities. Laboratory test results should always be considered in the context of clinical observations and epidemiological data in making a final diagnosis and patient management decisions. Please review the Fact Sheets and FDA authorized labeling available for health care providers and patients using the following websites: https://www.Arthena.[employer]/home/Covid-19/HCP/QuestLDT/ fact-sheet.html https://www.Arthena.[employer]/home/Covid-19/Patients/QuestLDT/ fact-sheet.html ?? This test has been authorized by the FDA under an Emergency Use Authorization (EUA) for use by authorized laboratories. Due to the current public health emergency, [facility] is receiving a high volume of samples [...] Methodology: ??Nucleic Acid Amplification Test (NAAT) includes RT-PCR or TMA ?? Additional information about COVID-19 can be found at the [facility] website: www.Skimlinks/Covid19. Microbiology Nasopharyngeal swab / Unknown 06/11/2020 7:06 AM EST 06/11/2020 7:06 AM EST Narrative [facility] - 06/15/2020 6:00 PM EST Performing Organization Information: ?Site ID: [id number] ?Name: Ryla ?Address: [address] [place] [address],[place] [address] ?Director: EMIR KINGSTON MD [facility] at [facility] License number [id number] Ronen Juarez PA-C BODY FLUIDS AND STOOLS OR DERABLES Final Result Performing Organization Address City/State/[facility] Co de Phone Number [facility] documented in this encounter Visit Diagnoses Diagnosis Encounter for laboratory testing for COVID-19 virus documented in this encounter Care Teams Supervisor Newspaper Deliveries Relationship Specialty Start Date End Date Pcp, No PCP - General General Medicine 06/20/24 documented as of this encounter
--- OUTSIDE RECORDS SUMMARY | 2024-11-13 08:37 | XMS_ITS | Encounter Summary ---
Author Organization [facility] Address [address] [place] [address] Care Team Providers Care Associate Data Scientist Name Role Phone Pcp, No Primary Care Provider Unavailabl e Encounter Details Date Type Department Care Team (Late st Contact Info) Description 10/14/2024 Scanned Document Orth[facility] [address] [phone] Papito Degroot MD [address] [place] [address] [address] [place] [address] Social History Tobacco Use Types Packs/Day Years [...] Description 11/19/2024 1:00 PM EDT [facility] [address] [place] [address] Enedelia Boggs, OT [address] [place] [address] 11/26/2024 1:00 PM EDT [facility] [address] [place] [address] Enedelia Boggs, OT [address] [place] [address] 12/03/2024 1:00 PM EDT [facility] [address] [address] Enedelia Boggs, OT [address] [place], [place] [address] documented as of this encounter Goals Goal Patient Goal Type Associated Problems [...] OT STG 3 Occupational Therapy No Enedelia Boggs OT Note: Increase active ability to reach behind back to tuck in shirt documented as of this encounter Visit Diagnoses Not on filedocumented in this encounter Care Teams Associate Data Scientist Relationship Specialty Start Date End Date Pcp, No PCP - General General Medicine 06/20/24 documented as of this encounter
--- OUTSIDE RECORDS SUMMARY | 2024-11-13 08:37 | XMS_ITS | Encounter Summary ---
Author Organization [facility] Address [address] [place] [address] Care Team Providers Care Pecan Cleaner Name Role Phone Pcp, No Primary Care Provider Unavailabl e Reason for Visit * Reason Comments Pain Work Related Injury Encounter Details Date Type Department Care Team (Late st Contact Info) Description 11/10/2024 2:30 PM EDT Office Visit Orthopedic [address] [phone] Papito Degroot MD [address] [facility] [address] [place] [address] Spondylosis of lumbosacral region without myelopathy or radiculopathy (Primary Dx) Social History Tobacco Use Types Packs/Day Years Used Date Smoking Tobacco: Never Assessed Sex and Gender Information Value Date Recorded Sex Assigned at Male 06/03/2024 2:34 PM EST Legal Sex Male 5:01 PM EDT Gender Identity Male 06/03/2024 2:34 PM EST Sexual Orientation Heterosexual (straight) 06/04 2:10 PM EST documented as of this encounter Progress Notes * Papito Degroot MD - 11/10/2024 2:30 PM EDT Images from the original note were not included. OA [address] [facility] [address] [facility] [phone] Encounter Date: 11/10/2024 Assessment & Plan 1. Spondylosis of lumbosacral region without myelopathy or radiculopathy Patient has mechanical low back pain. MRI of his lumbar spine is completely normal. His level of subjective debility is unexplained by the objective MRI of his lumbar spine. At most he has facet mediated pain. Plan The patient has been scheduled for medial branch blocks and if effective radiofrequency ablation. We called in Celebrex and Zanaflex and indicated that did not provide relief for his pain. I reviewed the MRI of his lumbar spine and advised him that it is normal. I told him I do not expect any surgery. I do not anticipate any additional interventions with the exception of that which wasmentioned today. He verbalized that he more than likely wants to get a second opinion from a neurosurgeon. He advised me that he does have an sports attorney. We discussed the risks and benefits of proceeding with Medial Branch Blocks of the sensory nerves supplying the facet joints of the spine. Risks include but are not limited to: Infection, Bleeding, Nerve injury, pain at the injection site, pain associated with the injection, possibility of increased pain after the injection, and failure to provide relief. Benefits include pain reduction or possible elimination of the pain. The duration of pain relief, if achieved, should last approximately 2 to3 days. The patient should participate in activities that normally cause their pain and maintain a pain diary tracking their pain levels. The patient must achieve a satisfactory level of pain relief in order to proceed to the next step in the process. The patient is a candidate to have this procedure done as they have met the following criteria: This patient has had mechanical low back pain for greater than 6 months. The patient's pain level is a 7 out of 10 on a numeric pain scale. This patient has tried Physical Therapy and/or is participating in a Home Exercise Program within the last 6 months. The patient has tried nonsteroidal anti-inflammatory medications and muscle relaxers, but these have not provided relief. Pain is localized and does not radiate beyond their spine. The patient has not had fusion in the area of concern. The patient continues Physical Therapy Exercises Prescribed for Home on a daily basis. The patients pain interferes with activities of daily living including housework and sleep interruption. Pain levels reach at least a 7 on a daily basis, interfering with the patients' quality of life. History of Present Illness: Tristen Galeana is a 44 y.o. male who presents today for an evaluation. Patient presents my office today for an unscheduled visit He said he went to the urgent center on Sunday Reports he got out of bed on Sunday and had difficulty standing and walking. He is currently on light duty. No lifting more than 30 pounds. He says he has difficulty sitting. He has difficulty being at work simple sedentary capacity. Pain is localized in his lumbar spine. 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 Feels that no one is understanding his pain spite the fact that the MRI of his lumbar spine is normal Vital Signs There were no vitals taken for this visit. Cardiac regular rhythm on exam Pulmonary Clear Physical Examination of the patient reveals the following: Patient is well appearing, A&Ox3, not in acute distress. Inspection reveals no atrophy to the lumbar paraspinals or lower extremity musculature. Range of Motion of the Lumbar spine is restricted. Lumbar paraspinals are tender to palpation. Straight leg raise test: Negative. Hip internal/external rotation: Negative. Facet loading: Positive Motor testing: IP, quadricep, hamstring, dorsiflexion, plantarflexion, EHL 5/5 Sensory testing intact Spinal reflexes 2/2 patella and achilles SI Joint: Eros's maneuver is negative. He present himself as an individual severe debility. Presents with limited motion of his lumbar spine limited to 5% of normal flexion, extension and sidebending and rotation Imaging/Data Review Imaging was independently reviewed and interpreted by me. Imaging Impression: I reviewed the MRI of his lumbar spine. It is dated July 17, 2024. It is normal. There is no discherniation or spinal stenosis. I verbalized this to the patient. I told him his MRI is normal. He Advised me that he does not understand where his pain is coming from if the MRI is normal Review of Systems Patient denies fever, unintentional weight loss. Remainder of a 10 point review of systems is otherwise negative except for pertinent positives listed above in the HPI. Past Medical History No past medical history on file. No past surgical history on file. No family history on file. Medication List Current Outpatient Medications: ??? celeCOXIB (CeleBREX) 100 MG capsule, Take 1 capsule (100 mg total) by mouth 2 (two) times a day., Disp: 60 capsule, Rfl: 0 ??? TiZANidine (ZANAFLEX) 4 MG capsule, Take 1 capsule (4 mg total) by mouth 3 (three) times a day as needed for muscle spasms., Disp: 30 capsule, Rfl: 0 Allergies No Known Allergies Visit Orders. No orders of the defined types were placed in this encounter. No orders of the defined types were placed in this encounter. Papito Degroot MD documented in this encounter Plan of Treatment Upcoming Encounters Date Type Department Care Team (Late st Contact Info) Description 11/19/2024 1:00 PM EDT [facility] [place] [phone] Enedelia Boggs, OT [address] [place] [address] 11/26/2024 1:00 PM EDT [facility] [address] [address] Enedelia Boggs, OT [address] [place] [phone] 12/03/2024 1:00 PM EDT [facility] [address] [address] Enedelia Boggs, OT [address] [place] [phone] documented as of this encounter Goals Goal [...] documented as of this encounter Visit Diagnoses Diagnosis Spondylosis of lumbosacral region without myelopathy or radiculopathy- Primary documented in this encounter Care Teams Pecan Cleaner Relationship Specialty Start Date End Date Pcp, No PCP - General General Medicine 06/20/24 documented as of this encounter
--- OUTSIDE RECORDS SUMMARY | 2024-11-13 08:37 | XMS_ITS | Encounter Summary ---
Author Organization [facility] Address [address] [place] [address] Care Team Providers Care Chemistry Quality Control Technician Name Role Phone Pcp, No Primary Care Provider Unavailabl e Encounter Details Date Type Department Care Team (Late st Contact Info) Description 09/05/2024 Scanned Document Orth[facility] [address] [phone] Vin Amaya MD [address] [place] [address] Social History Tobacco Use Types Packs/Day Years [...] Description 11/19/2024 1:00 PM EDT [facility] [address] [address] Enedelia Boggs, OT [address] [place] [address] 11/26/2024 1:00 PM EDT [facility] [address] [address] Enedelia Boggs, OT [address] [place] [address] 12/03/2024 1:00 PM EDT [facility] [address] [place] [address] Enedelia Boggs, OT [address] [place], [place] [phone] documented as of this encounter Visit Diagnoses Not on filedocumented in this encounter Care Teams Chemistry Quality Control Technician Relationship Specialty Start Date End Date Pcp, No PCP - General General Medicine 06/20/24 documented as of this encounter
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
--- OUTSIDE RECORDS SUMMARY | 2024-11-13 08:37 | XMS_ITS | Encounter Summary ---
Author Organization [facility] Address [address] [place] [address] Care Team Providers Care Giver Name Role Phone Pcp, No Primary Care Provider Unavailabl e Encounter Details Date Type Department Care Team (Late st Contact Info) Description 04/09/2020 Lab Requisition EM Lab DOC: Delroy Ca [address] [place] [phone] Ronen Juarez PA-C [address] [place] [id number] Encounter for laboratory testing for COVID-19 virus [...] 11/19/2024 1:00 PM EDT [facility] [address] [address] Enedelia Boggs, OT [address] [place] [id number] 11/26/2024 1:00 PM EDT [facility] [address] [place] [id number] Enedelia Boggs OT [address] [place] [address] 12/03/2024 1:00 PM EDT [facility] [address] [place] [address] Enedelia Boggs, OT [address] [place] [address] documented as of this encounter Procedures Procedure Name Priority Date/Time Associated Diagnosis Comments (REPORT) SARS COV-2 RNA (COVID-19), QUAL Routine 04/09/2020 9:27 AM EDT Encounter for laboratory testing for COVID-19 virus [ICD-10-CM] documented in this encounter Results * SARS CoV-2 RNA (COVID-19), Qual (04/09/2020 9:27 AM EDT) [facility] SARS CoV 2 RNA, Qual NOT DETECTED NOT DETECTED 04/10/2020 9:00 PM EDT [facility] Comment: A Not Detected (negative) test result [...] providers and patients using the following websites: https://www.[employer].com/home/Covid-19/HCP/QuestLDTP/ fact-sheet https://www.[employer].All[employer]Rooms/home/Covid-19/Patients/QuestLDTP/ fact-sheet.html This test has been authorized by the FDA under an Emergency Use Authorization (EUA) for use by authorized laboratories. Due to the current public health emergency, [facility] is receiving a high volume of samples [...] about COVID-19 can be found at the [facility] website: www.[employer]/Covid19. Microbiology Nasopharyngeal swab / Unknown 04/09/2020 9:27 AM EDT 04/09/2020 9:27 AM EDT Narrative [facility] - 04/10/2020 9:00 PM EDT Performing Organization Information: ?Site ID: [id number] ?Name: [facility] ?Address: [address] [place] [address],[place] [address] ?Director: EMIR KINGSTON MD Performed at [facility] License number [id number] Ronen Juarez PA-C BODY FLUIDS AND STOOLS OR DERABLES Final Result [facility] documented in this encounter Visit Diagnoses Diagnosis Encounter for laboratory testing for COVID-19 virus documented in this encounter Care Teams Giver Relationship Specialty Start Date End Date Pcp, No PCP - General General Medicine 06/20/24 documented as of this encounter
== END 2024-11-13 09:09 | disposition home or self-care (01) ==
LOC: HO.HGI 08:20
PROVIDERS: PCP Internal Medicine; Visit Provider Nurse Practitioner Family
DX: Z01.818 Encounter for other preprocedural examination (principal); Z12.11 Encounter for screening for malignant neoplasm of colon; K21.9 Gastro-esophageal reflux disease without esophagitis; R10.12 Left upper quadrant pain
CPT/HCPCS: S0285

== ENCOUNTER 2024-11-23 15:06 | Emergency (ER) | payer OTHER, BC, SELFPAY ==
--- NOTE | ~2024-11-23 | XR_ITS ---
CLINICAL HISTORY: acute on chronic knee pain 4 view right knee Comparison: None Findings: No fractures or dislocations. Tricompartmental periarticular osteophyte formation, indicating osteoarthritis. No joint effusion. No radiopaque foreign body. IMPRESSION: 1. No acute findings. This document has been electronically signed by: Rajiv Carroll MD on 11/23/2024 15:49:32
[2024-11-23 15:17] VITALS: BP 124/90; PULSE 91; RESP 18; TEMP 36.6; O2SAT 97; BMI 32.6
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
[2024-11-23 16:28] VITALS: BP 142/91; PULSE 97; RESP 19; TEMP 36.6; O2SAT 98
[2024-11-23 16:49] VITALS: BP 142/91; PULSE 97; RESP 19; TEMP 36.6; O2SAT 98
== END 2024-11-23 16:50 | disposition home or self-care (01) ==
PROVIDERS: Emergency Provider Emergency Medicine Emergency Medical Services; PCP Internal Medicine
DX: Z04.2 Encounter for examination and observation following work accident (principal); S83.91XD Sprain of unspecified site of right knee, subsequent encounter; V43.52XD Car driver injured in collision with other type car in traffic accident, subsequent encounter; M25.561 Pain in right knee
CPT/HCPCS: 73564; 99283

== ENCOUNTER → 2024-11-23 15:21 | Outpatient (BNV) | payer BC, SELFPAY | PROVIDERS: PCP Internal Medicine; Visit Provider Radiology Diagnostic Radiology | DX: M25.561 Pain in right knee (principal) | CPT/HCPCS: 73564 ==

== ENCOUNTER 2025-01-21 16:23 | Outpatient (REF) | payer BC, SELFPAY ==
--- NOTE | ~2025-01-21 | XR_ITS ---
EXAMINATION: XR CHEST CLINICAL INFORMATION: CHEST PAIN COMPARISON: Chest pain TECHNIQUE: 2 views of the chest were obtained. FINDINGS: No significant abnormality is noted involving the heart, lungs, mediastinum, bony thorax or soft tissues. XR/XR chest 2V IMPRESSION: No acute disease Electronically signed by: Edin Dumont MD 01/21/2025 05:09 PM EDT RP
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
--- OUTSIDE RECORDS SUMMARY | 2025-01-21 16:26 | XMS_ITS | Continuity of Care Document ---
Author Organization [facility] Address [address] [facility] [address] [place] [address] Insurance Providers Payer Plan Claims Address Claims Phone Policy Number Group Number Relation Employer Guarantor Name Guarantor Guarantor Address Guarantor Phone [employer] [address], [place] [address] tel:[phone] Blue [employer] PPO [id number] Self Tristen Galeana [address] [place] [id number] Problems Unknown Problems Results Test Result Date/Time Value / Unit Interp. Refere [facility] Range LIPID PANEL, STANDARD[[id number]] Collected: 11/04/2022 11:37 AM Specimen Received: 11/04/2022 11:38 AM Source: QuestFASTING:YESFASTING: YES CHOLESTEROL, TOTAL [[id number]] 11/06/2022 09:23 PM 128 mg/dL N 200 mg/dL HDL CHOLESTEROL [[id number]] 11/06/2022 09:23 PM 43 mg/dL N > OR = 40 mg/dL TRIGLYCERIDES [[id number]] 11/06/2022 09:2 3 PM 80 mg/dL N 150 mg/dL LDL-CHOLESTEROL [[id number]] 11/06/2022 09:23 PM 69 mg/dL (calc) N Reference range: or = 2 CHD risk factors. LDL-C is now calculated using the Yanick calculation, which is a validated novel method providing better accuracy than the Friedewald equation in the estimation of LDL-C. Aba BREWER et al. TOLU. 2013;310(19): 6942-4695 (http://education.[employer].Starvine/faq/SVZ957) CHOL/HDLC RATIO [[id number]] 11/06/2022 09:23 PM 3.0 (calc) N 5.0 (calc) NON HDL CHOLESTEROL [[id number]] 11/06/2022 09:23 PM 85 mg/dL (calc) N 130 mg/dL (calc) For patients with diabetes p marielle 1 major ASCVD risk factor, treating to a non-HDL-C goal of 100 mg/dL (LDL-C of <70 mg/dL) is considered a therapeutic option. ALBUMIN, RANDOM URINE W/CREA TININE[[id number]] Collected: 11/04/2022 11:37 AM Specimen Received: 11/04/2022 11:38 AM Source: QuestFASTING:YESFASTING: YES CREATININE, RANDOM URINE [[id number]] 11/06/2022 09:23 PM 155 mg/dL N 20-320 mg/dL ALBUMIN, URINE [[id number]] 11/06/2022 09: 23 PM 0.2 mg/dL N See Note: mg/dL Reference Range:Reference Ra ngeNot established ALBUMIN/CREATININE RATIO, RANDOM URINE [[id number]] 11/06/2022 09:23 PM 1 mcg/mg creat N 30 mcg/mg creat The ADA defines abnormalitie s in albuminexcretion as follows: Albuminuria Category Result (mcg/mg creatinine) Normal to Mildly increased OR = 300 The ADA recommends that at least two of threespecimens collected within a 3-6 month period beabnormal before considering a patient to bewithin a diagnostic category. COMPREHENSIVE METABOLIC PANE L[[id number]] Collected: 11/04/2022 11:37 AM Specimen Received: 11/04/2022 11:38 AM Source: QuestFASTING:YESFASTING: YES GLUCOSE [[id number]] 11/06/2022 09:23 PM 94 mg/dL N 65-99 mg/dL Fasting reference interval UREA NITROGEN (BUN) [[id number]] 11/06/2022 09:23 PM 14 mg/dL N 7-25 mg/dL CREATININE [[id number]] 11/06/2022 09:23 PM 1.06 mg/dL N 0.60-1.29 mg/dL EGFR [[id number]] 11/06/2022 09:23 PM 89 mL/min/1.73m2 N > OR = 60 mL/min/1.73m2 The eGFR is based on the CKD -EPI 2020 equation. To calculate the new eGFR from a previous Creatinine or Cystatin Cresult, go to https://www.kidney.org/professionals/kdoqi/gfr%5Fcalculator BUN/CREATININE RATIO [[id number]] 11/06/2022 09:23 PM NOT APPLICABLE (calc) 6-22 (calc) SODIUM [[id number]] 11/06/2022 09:23 PM 139 mmol/L N 135-146 mmol/L POTASSIUM [[id number]] 11/06/2022 09:23 PM 4.2 mmol/L N 3.5-5.3 mmol/L CHLORIDE [[id number]] 11/06/2022 09:23 PM 105 mmol/L N 98-110 mmol/L CARBON DIOXIDE [[id number]] 11/06/2022 09: 23 PM 25 mmol/L N 20-32 mmol/L CALCIUM [[id number]] 11/06/2022 09:23 PM 9.0 mg/dL N 8.6-10.3 mg/dL PROTEIN, TOTAL [[id number]] 11/06/2022 09: 23 PM 6.9 g/dL N 6.1-8.1 g/dL ALBUMIN [[id number]] 11/06/2022 09:23 PM 4.3 g/dL N 3.6-5.1 g/dL GLOBULIN [[id number]] 11/06/2022 09:23 PM 2.6 g/dL (calc) N 1.9-3.7 g/dL (calc) ALBUMIN/GLOBULIN RATIO [[id number]] 11/06/2022 09:23 PM 1.7 (calc) N 1.0-2.5 (calc) BILIRUBIN, TOTAL [[id number]] 11/06/2022 09:23 PM 1.0 mg/dL N 0.2-1.2 mg/dL ALKALINE PHOSPHATASE [[id number]] 11/06/2022 09:23 PM 82 U/L N 36-130 U/L AST [[id number]] 11/06/2022 09:23 PM 15 U/L N 10-40 U/L ALT [[id number]] 11/06/2022 09:23 PM 24 U/L N 9-46 U/L HEMOGLOBIN A1c[[id number]] Collected: 11/04/2022 11:37 AM Specimen Received: 11/04/2022 11:38 AM Source: QuestFASTING:YESFASTING: YES HEMOGLOBIN A1c [[id number]] 11/06/2022 09: 23 PM 8.1 % of total Hgb H 5.7 % of total Hgb For someone without known di abetes, a hemoglobin J2gzgstg of 6.5% or greater indicates that they [...] of diabetes for children. Clinical PDF Report [id number][ClinicalPDFReport1] Collected: 11/04/2022 11:37 AM Specimen Received: 11/04/2022 11:38 AM Source: QuestFASTING:YESFASTING: YES Clinical PDF Report [id number] [ClinicalPDFReport1] TSERING Allergies, adverse reactions, alerts No known allergies and adverse reactions Medications No administered medications reported Vital Signs No vital signs reported Social History No smoking Hx information available
--- OUTSIDE RECORDS SUMMARY | 2025-01-21 16:26 | XMS_ITS | Encounter Summary ---
Author Organization [facility] Address [address] [place] [address] Care Team Providers Care Draft Roller Picker Name Role Phone Pcp, No Primary Care Provider Unavailabl e Encounter Details Date Type Department Care Team (Late st Contact Info) Description 10/14/2024 Scanned Document [facility] [address] [place] [address] Papito Degroot MD [address] [place] [address] [address] [place] [address] Social History Tobacco Use Types Packs/Day Years [...] Care Team (Late st Contact Info) Description 01/23/2025 8:00 AM EDT Treatment [facility] [address] [place] [phone] Ariela Mendez MD [address] [facility] [address] [place] [address] Eliecer Betancourt, PT [address] [place] [address] 01/27/2025 7:30 AM EDT Treatment [facility] [address] [place], [place] [phone] Ariela Mendez MD [address] [place] [address] Eliecer Betancourt, PT [address] [place] [address] 01/30/2025 7:30 AM EDT Treatment [facility] [address] [place] [address] Ariela Mendez MD [address] [place] [address] Eliecer Betancourt, PT [address] [place] [address] 02/03/2025 7:30 AM EDT Treatment [facility] [address] [place] [address] Ariela Mendez MD [address] [place] [address] Eliecer Betancourt, PT [address] [place] [address] 02/05/2025 2:30 PM EDT [facility] [address] [phone] Vin Amaya MD [address] [place] [address] 02/06/2025 7:30 AM EDT Treatment [facility] [address] [place] [phone] Ariela Mendez MD 31 [facility] 100 [place] [address] Elen Cui, PT [address] [facility] [place] [address] documented as of this encounter Visit Diagnoses Not on filedocumented in this encounter Care Teams Draft Roller Picker Relationship Specialty Start Date End Date Pcp, No PCP - General General Medicine 06/20/24 documented as of this encounter
--- OUTSIDE RECORDS SUMMARY | 2025-01-21 16:26 | XMS_ITS | Clinical Summary ---
Author Organization [facility] Address [address] [place] [address] Phone Care Team Providers Care Associate Business Analyst Name Role Phone Shameka Don DO Primary [...] Surgery Date Site/Laterality Comments VASECTOMY 2006 PROCEDURE: ND VASECTOMY UNI/BI SPX W/POSTOP SEMEN EXAMS Medical [...] 79 06/02/2024 4:44 PM EST Temperature 36.7 C (98.1 F) 06/02/2024 4:44 PM EST Respiratory Rate 18 06/02/2024 4:44 PM EST [...] Influencers of Health Screening 06/03/2024 Influenza Vaccine (#1) 2025 05/01/2014 HIB Vaccines Aged Out No [...] 5 Years) and At-Risk Patients (6 to 49 [...] Insurance BENJAMÍN CHEATHAM BENJAMÍN CHEATHAM Care Teams Associate Business Analyst Relationship Specialty Start Date End Date Shameka Don DO [address] [facility] 1 [place] [phone] PCP - General Internal Medicine 06/02/24
[2025-01-21 16:40] LABS: MANUAL DIFF FLAG NO
[2025-01-21 17:16] LABS: Hematocrit 43.4 % (42.0-52.0); Hemoglobin 14.1 g/dl (14.0-18.0); Imm Gran Abs Auto 0.05 X10*3/uL (0.00-0.03); Imm Gran Pct Auto 0.4 % (0.0-0.4); Lymphocytes Absolute Auto 2.1 X10*3/uL (1.2-4.9); Mean Corpuscular HGB Conc 32.5 g/dl (31.0-36.0); Mean Corpuscular Hemoglobin 25.6 pg (27.0-33.0); Mean Corpuscular Volume 78.8 fL (80.0-98.0); NRBC Abs Auto 0.000 X10*3/uL (0.0-0.012); NRBC Pct Auto 0.0 /100WBC (0.0-0.2); Platelet Count 299 X10*3/uL (160-400); Red Blood Count 5.51 X10*6/uL (4.60-5.80); White Blood Count 12.3 X10*3/uL (4.8-10.8)
[2025-01-21 17:38] LABS: Alanine Aminotransferase 29 U/L (0-40); Albumin Level 4.6 g/dL (3.5-5.0); Alkaline Phosphatase 105 U/L (39-117); Anion Gap 12 (12-20); Aspartate Amino Transferase 19 U/L (5-37); Blood Urea Nitrogen 13 mg/dL (9-16); Calcium 9.2 mg/dL (8.4-10.2); Carbon Dioxide 26 mmol/L (22-29); Chloride 108 mmol/L (96-108); Estimated Glomerular Filt Rate > 60; Potassium 4.1 mmol/L (3.3-5.1); Sodium 142 mmol/L (135-145); Total Protein 7.5 g/dL (6.5-8.0)
[2025-01-21 17:39] LABS: B Type Natriuretic Peptide < 10 pg/mL (<100)
[2025-01-22 05:42] LABS: Hemoglobin A1C 261.6754 umol/L; Total Hemoglobin (HGBA1C) 3665.2823 umol/L
== END 2025-01-21 16:24 | disposition home or self-care (01) ==
LOC: HO.LAB 16:23
PROVIDERS: PCP Internal Medicine; Visit Provider Internal Medicine
DX: R07.1 Chest pain on breathing (principal); H57.10 Ocular pain, unspecified eye; R53.83 Other fatigue; E11.65 Type 2 diabetes mellitus with hyperglycemia
CPT/HCPCS: 36415; 71046; 80053; 83036; 83880; 85025; 86140

== ENCOUNTER → 2025-01-21 16:45 | Outpatient (BNV) | payer BC, SELFPAY | PROVIDERS: PCP Internal Medicine; Visit Provider Radiology Diagnostic Radiology | DX: R07.9 Chest pain, unspecified (principal) | CPT/HCPCS: 71046 ==

== ENCOUNTER 2025-04-08 08:40 | Outpatient (REF) | payer BC, SELFPAY ==
--- OUTSIDE RECORDS SUMMARY | 2025-04-03 07:00 | XMS_ITS | Encounter Summary ---
Author Organization [facility] Address [address] [place] [address] Care Team Providers Care Business Education Teacher Name Role Phone Pcp, No Primary Care Provider Unavailabl e Reason for Visit * Reason Comments PT Treatment * Rehabilitation (Routine) - Authorized Specialty Diagnoses / Procedures Referred By Continessa t Referred To Contact Rehabilitation Diagnoses Right knee pain, unspecified chronicity Ariela Mendez MD [address] [place] [address] Phone: tel: fax: [facility] [address] [place] [address] Phone: tel: fax: Referral ID Status Reason Start Date Expiration Date Visits Requested Visits Authorized [id number] Authorized Support Services 12/12/2024 07/08/2025 24 24 Encounter Details Date Type Department Care Team (Late st Contact Info) Description 04/03/2025 7:00 AM EDT [facility] [address] [place], [place] [phone] Ariela Mendez MD [address] [place] [address] Eliecer Betancourt, PT [address] [place] [address] Chronic pain of right knee (Primary Dx) Social History Tobacco Use Types Packs/Day Years Used Date Smoking Tobacco: Never Assessed Sex and Gender Information Value Date Recorded Sex Assigned at Male 06/03/2024 2:34 PM EST Legal Sex Male 5:01 PM EDT Gender Identity Male 06/03/2024 2:34 PM EST Sexual Orientation Heterosexual (straight) 06/04 2:10 PM EST documented as of this encounter Miscellaneous Notes * Daily/Treatment Note - Eliecer Betancourt, PT - 04/03/2025 8:03 AM EDT Physical Therapy Daily Note Diagnoses ICD-10-CM 1. Chronic pain of right knee M25.561 G89.29 Interpretation Services: Subjective: Daily Note Subjective - SunApril 03, 2025 [facility] Subjective Subjective stiffness present in the lumbar region today Treatment Performed: Interventions - SunApril 03, 2025 Row Name [facility] Neuro-muscular Re-education Justification to increase static and dynamic stability 1 single limb sit to stand 3x10 2 reverse lunge TKe 2x10 3 lateral plyo hop single limb transfers 2x10 4 bosu ball squats 3x10 5 SLS cone taps Airex x20 Therapeutic Procedures Justification to increase range of motion, strength and endurance 1 LBE 5' 2 seated hamstring curl 3x10 Assessment/ Plan: Daily Assessment and Plan - SunApril 03, 2025 Row Name [facility] Assessment/ Plan Assessment Performed single limb sit to stand transfer to improve quadriceps activation to decreasepain with ADL's Plan progress as tolerated Objective Measurements: documented in this encounter Plan of Treatment Upcoming Encounters Date Type Department Care Team (Late st Contact Info) Description 04/10/2025 7:00 AM EDT [facility] [address] [place] [phone] Eliecer Betancourt, PT [address] [place] [address] 04/15/2025 7:30 AM EDT Treatment [facility] [address] [place] [address] Eros Morris, PT [address] [place] [address] 04/17/2025 7:30 AM EDT Treatment [facility] [address] [place] [address] Elen Cui, PT [address] [place] [address] 04/17/2025 8:30 AM EDT [facility] [address] [address] Vin Amaya MD 31 [place] [address] 04/17/2025 11:00 AM EDT Office Visit [facility] [address] [phone] Papito Degroot MD 499 [facility] 300 [place] [address] documented as of this encounter Goals Goal Patient Goal Type Associated Problems Recent Progress Patient-Stated? Author PT LTG 1 Physical Therapy No Eliecer Betancourt, PT Note: Pt will demonstrate independence with HEP in 12 weeks PT LTG 2 Physical Therapy No Eliecer Betancourt PT Note: Pt will improve standing tolerance to 2 hour to improve house chores in 6 weeks documented as of this encounter Visit Diagnoses Diagnosis Chronic pain of right knee- Primary documented in this encounter Care Teams Business Education Teacher Relationship Specialty Start Date End Date Pcp, No PCP - General General Medicine 06/20/24 documented as of this encounter
--- OUTSIDE RECORDS SUMMARY | 2025-04-08 07:00 | XMS_ITS | Encounter Summary ---
Author Organization [facility] Address [address] [place] [address] Care Team Providers Care Electrician Journeyman Wireman Name Role Phone Pcp, No Primary Care Provider Unavailabl e Reason for Visit * Reason Comments PT Treatment * Rehabilitation (Routine) - Authorized Specialty Diagnoses / Procedures Referred By Continessa t Referred To Contact Rehabilitation Diagnoses Right knee pain, unspecified chronicity Ariela Mendez MD [address] [place] [address] Phone: tel: fax: [facility] [address] [place] [address] Phone: tel: fax: Referral ID Status Reason Start Date Expiration Date Visits Requested Visits Authorized [id number] Authorized Support Services 12/12/2024 07/08/2025 24 24 Encounter Details Date Type Department Care Team (Late st Contact Info) Description 04/08/2025 7:00 AM EDT Treatment [facility] [address] [place], [place] [phone] Ariela Mendez MD [address] [place] [address] Eliecer Betancourt, PT [address] [place] [address] Chronic pain of right knee (Primary Dx) [...] Daily/Treatment Note - Eliecer Betancourt, PT - 04/08/2025 7:56 AM EDT Physical Therapy Daily Note Diagnoses ICD-10-CM 1. Chronic pain of right knee M25.561 G89.29 Interpretation Services: Subjective: Daily Note Subjective - SunApril 08, 2025 Row Name [facility] Subjective Subjective I have not been doing much Treatment Performed: Interventions - SunApril 08, 2025 Row Name [facility] Neuro-muscular Re-education Justification to increase static and dynamic stability 1 Bosu ball lateral step up x25 2 Airex pad SLS hip abd and exten 2x10 Therapeutic Procedures Justification to increase range of motion, strength and endurance 1 LBE 5' 2 piriformis stretch 20''x4 3 glute medius stretch 20''x4 4 supine ITB stretch 20''x4 Assessment/ Plan: Daily Assessment and Plan - SunApril 08, 2025 Row Name [facility] Assessment/ Plan Assessment Performed SLS with contralateral hip abduction, noted right hip discomfort during closedchain stability Plan progress as tolerated Objective Measurements: documented in this encounter Plan of Treatment Upcoming Encounters Date Type Department Care Team (Late st Contact Info) Description 04/10/2025 7:00 AM EDT [facility] [address] [place] [phone] Eliecer Betancourt, PT [address] [place] [address] 04/15/2025 7:30 AM EDT Treatment [facility] [address] [place] [address] Eros Morris, PT [address] [place] [address] 04/17/2025 7:30 AM EDT Treatment [facility] [address] [facility], [place] [phone] Elen Cui, PT [address] [place] [address] 04/17/2025 8:30 AM EDT [facility] [address] [address] Vin Amaya MD 31 [place], [place] [phone] 04/17/2025 11:00 AM EDT Office Visit [facility] [address] [phone] Papito Degroot MD 499 [facility] 300 [place] [address] documented as of this encounter Goals Goal [...] Primary documented in this encounter Care Teams Electrician Journeyman Wireman Relationship Specialty Start Date End Date Pcp, No PCP - General General Medicine 06/20/24 documented as of this encounter
--- OUTSIDE RECORDS SUMMARY | 2025-04-08 09:15 | XMS_ITS | Encounter Summary ---
Author Organization [facility] Address [address] [place] [address] Care Team Providers Care Learning Coordinator Name Role Phone Pcp, No Primary Care Provider Unavailabl e Encounter Details Date Type Department Care Team (Late st Contact Info) Description 03/12/2020 Lab Requisition EM Lab DOC: Delroy Ca [address] [place] [phone] Ronen Juarez, JASMYNE [address] [place] [address] Encounter for laboratory testing for COVID-19 virus [...] Info) Description 04/10/2025 7:00 AM EDT Treatment [facility] [address] [place], [place] [phone] Eliecer Betancourt, PT [address] [place] [address] 04/15/2025 7:30 AM EDT Treatment [facility] [address] [place] [address] Eros Morris, PT [address] [facility], [place] [address] 04/17/2025 7:30 AM EDT Treatment [facility] [address] [facility] [place] [address] Elen Cui, PT [address] [facility] [place], [place] [phone] 04/17/2025 8:30 AM EDT [facility] [address] [place], [place] [address] Vin Amaya MD 31 [place], [place] [phone] 04/17/2025 11:00 AM EDT [facility] [address] [place] [address] Papito Degroot MD 499 [facility] [address] [place], [place] [phone] documented as of this encounter Procedures Procedure Name Priority Date/Time Associated Diagnosis Comments (REPORT) SARS COV-2 RNA (COVID-19), QUAL Routine 03/12/2020 9:41 AM EDT Encounter for laboratory testing for COVID-19 virus [ICD-10-CM] documented in this encounter Results * SARS CoV-2 RNA (COVID-19), Qual (03/12/2020 9:41 AM EDT) [facility] SARS CoV 2 RNA, Qual NOT DETECTED NOT DETECTED 03/14/2020 9:00 AM EDT [facility] Comment: A Not Detected (negative) test result [...] diagnosis and patient management decisions. REFERENCE RANGE: NOT DETECTED This patient specimen was tested using an FDA EUA pooling method. Negative results from pooled testing should not be treated as definitive. If the patient's clinical signs and symptoms are [...] providers and patients using the following websites: https://www.PsyQic.Satellogic/home/Covid-19/HCP/QuestLDTP/ fact-sheet https://www.Wowcracy/home/Covid-19/Patients/QuestLDTP/ fact-sheet.html This test has been authorized by the FDA under an Emergency Use Authorization (EUA) for use by authorized laboratories. Due to the current public health emergency, [facility] is receiving a high volume of samples [...] including collection of an additional specimen. Methodology: Nucleic Acid Amplification Test (NAAT) includes PCR or TMA Additional information about COVID-19 can be found at the [facility] website: www.Guroo.Satellogic/Covid19. Microbiology Nasopharyngeal swab / Unknown 03/12/2020 9:41 AM EDT 03/12/2020 9:41 AM EDT Narrative [facility] - 03/14/2020 9:00 AM EDT Performing Organization Information: Site ID: [id number] Name: [employer] Address: [address] [place] [address],[place] [address] Director: EMIR KINGSTON MD [facility] License number [id number] Ronen Juarez PA-C BODY FLUIDS AND STOOLS OR DERABLES Final Result Performing Organization Address City/State/[facility] Co de Phone Number [facility] documented in this encounter Visit Diagnoses Diagnosis Encounter for laboratory testing for COVID-19 virus documented in this encounter Care Teams Learning Coordinator Relationship Specialty Start Date End Date Pcp, No PCP - General General Medicine 06/20/24 documented as of this encounter
--- OUTSIDE RECORDS SUMMARY | 2025-04-08 09:15 | XMS_ITS | Continuity of Care Document ---
Author Organization [facility] Address [address] [facility] [address] [place] [address] Insurance Providers Payer Plan Claims Address Claims Phone Policy Number Group Number Relation Employer Guarantor Name Guarantor Guarantor Address Guarantor Phone [employer] [address], [place] [address] tel:[phone] Blue Cross PPO [id number] Self Tristen Galeana [address] [place] [address] Problems Unknown Problems Results Test Result Date/Time Value / Unit Interp. Refere [facility] Range LIPID PANEL, STANDARD[7600] Collected: 11/04/2022 11:37 AM Specimen Received: 11/04/2022 11:38 AM Source: QuestFASTING:YESFASTING: YES CHOLESTEROL, TOTAL [[id number]] 11/06/2022 09:23 PM 128 mg/dL N 200 mg/dL HDL CHOLESTEROL [[id number]] 11/06/2022 09:23 PM 43 mg/dL N > OR = 40 mg/dL TRIGLYCERIDES [[id number]] 11/06/2022 09:2 3 PM 80 mg/dL N 150 mg/dL LDL-CHOLESTEROL [[id number]] 11/06/2022 09:23 PM 69 mg/dL (calc) N Reference range: or = 2 CHD risk factors. LDL-C is now calculated using the Yanick calculation, which is a validated novel method providing better accuracy than the Friedewald equation in the estimation of LDL-C. Aba BREWER et al. TOLU. 2013;310(19): 3717-3151 (http://education.Corous360.Tenon Medical/faq/OSN231) CHOL/HDLC RATIO [[id number]] 11/06/2022 09:23 PM 3.0 (calc) N 5.0 (calc) NON HDL CHOLESTEROL [[id number]] 11/06/2022 09:23 PM 85 mg/dL (calc) N 130 mg/dL (calc) For patients with diabetes p marielle 1 major ASCVD risk factor, treating to a non-HDL-C goal of 100 mg/dL (LDL-C of <70 mg/dL) is considered a therapeutic option. ALBUMIN, RANDOM URINE W/CREA TININE[[id number]] Collected: 11/04/2022 11:37 AM Specimen Received: 11/04/2022 11:38 AM Source: QuestFASTING:YESFASTING: YES CREATININE, RANDOM URINE [[id number]] 11/06/2022 09:23 PM 155 mg/dL N 20-320 mg/dL ALBUMIN, URINE [[id number]] 11/06/2022 09: 23 PM 0.2 mg/dL N See Note: mg/dL Reference Range:Reference Ra ngeNot established ALBUMIN/CREATININE RATIO, RANDOM URINE [[id number]] 11/06/2022 09:23 PM 1 mcg/mg creat N 30 mcg/mg creat The ADA defines abnormalitie s in albuminexcretion as follows: Albuminuria Category Result (mcg/mg creatinine) Normal to Mildly increased OR = 300 The ADA recommends that at least two of threespecimens collected within a 3-6 month period beabnormal before considering a patient to bewithin a diagnostic category. COMPREHENSIVE METABOLIC PANE L[[id number]] Collected: 11/04/2022 11:37 AM Specimen Received: 11/04/2022 11:38 AM Source: QuestFASTING:YESFASTING: YES GLUCOSE [[id number]] 11/06/2022 09:23 PM 94 mg/dL N 65-99 mg/dL Fasting reference interval UREA NITROGEN (BUN) [[id number]] 11/06/2022 09:23 PM 14 mg/dL N 7-25 mg/dL CREATININE [[id number]] 11/06/2022 09:23 PM 1.06 mg/dL N 0.60-1.29 mg/dL EGFR [[id number]] 11/06/2022 09:23 PM 89 mL/min/1.73m2 N > OR = 60 mL/min/1.73m2 The eGFR is based on the CKD -EPI 2020 equation. To calculate the new eGFR from a previous Creatinine or Cystatin Cresult, go to https://www.kidney.org/professionals/kdoqi/gfr%5Fcalculator BUN/CREATININE RATIO [[id number]] 11/06/2022 09:23 PM NOT APPLICABLE (calc) 6-22 (calc) SODIUM [[id number]] 11/06/2022 09:23 PM 139 mmol/L N 135-146 mmol/L POTASSIUM [[id number]] 11/06/2022 09:23 PM 4.2 mmol/L N 3.5-5.3 mmol/L CHLORIDE [[id number]] 11/06/2022 09:23 PM 105 mmol/L N 98-110 mmol/L CARBON DIOXIDE [[id number]] 11/06/2022 09: 23 PM 25 mmol/L N 20-32 mmol/L CALCIUM [[id number]] 11/06/2022 09:23 PM 9.0 mg/dL N 8.6-10.3 mg/dL PROTEIN, TOTAL [[id number]] 11/06/2022 09: 23 PM 6.9 g/dL N 6.1-8.1 g/dL ALBUMIN [[id number]] 11/06/2022 09:23 PM 4.3 g/dL N 3.6-5.1 g/dL GLOBULIN [[id number]] 11/06/2022 09:23 PM 2.6 g/dL (calc) N 1.9-3.7 g/dL (calc) ALBUMIN/GLOBULIN RATIO [[id number]] 11/06/2022 09:23 PM 1.7 (calc) N 1.0-2.5 (calc) BILIRUBIN, TOTAL [[id number]] 11/06/2022 09:23 PM 1.0 mg/dL N 0.2-1.2 mg/dL ALKALINE PHOSPHATASE [[id number]] 11/06/2022 09:23 PM 82 U/L N 36-130 U/L AST [[id number]] 11/06/2022 09:23 PM 15 U/L N 10-40 U/L ALT [[id number]] 11/06/2022 09:23 PM 24 U/L N 9-46 U/L HEMOGLOBIN A1c[[id number]] Collected: 11/04/2022 11:37 AM Specimen Received: 11/04/2022 11:38 AM Source: QuestFASTING:YESFASTING: YES HEMOGLOBIN A1c [[id number]] 11/06/2022 09: 23 PM 8.1 % of total Hgb H 5.7 % of total Hgb For someone without known di abetes, a hemoglobin G6tzjkox of 6.5% or greater indicates that they [...] of diabetes for children. Clinical PDF Report [id number][ClinicalPDFReport1] Collected: 11/04/2022 11:37 AM Specimen Received: 11/04/2022 11:38 AM Source: QuestFASTING:YESFASTING: YES Clinical PDF Report [id number] [ClinicalPDFReport1] TSERING Allergies, adverse reactions, alerts No known allergies and adverse reactions Medications No administered medications reported Vital Signs No vital signs reported Social History No smoking Hx information available
--- OUTSIDE RECORDS SUMMARY | 2025-04-08 09:15 | XMS_ITS | Encounter Summary ---
Author Organization [facility] Address [address] [place] [address] Care Team Providers Care Professional System Administrator Name Role Phone Pcp, No Primary Care Provider Unavailabl e Encounter Details Date Type Department Care Team (Late st Contact Info) Description 04/09/2020 Lab Requisition EM Lab DOC: Delroy Ca [address] [place] [phone] Ronen Juarez, JASMYNE [address] [place] [address] Encounter for laboratory testing for COVID-19 virus [...] Info) Description 04/10/2025 7:00 AM EDT [facility] [address], [place] [phone] Eliecer Betancourt, PT 330 [place] [address] 04/15/2025 7:30 AM EDT [facility] [address] [place] [address] Eros Morris, PT [address] [facility] [place], [place] [address] 04/17/2025 7:30 AM EDT [facility] [address] [place] [facility] [place] [address] Elen Cui, PT [address] [facility] [place] [address] 04/17/2025 8:30 AM EDT [facility] [address] [place], [place] [address] Vin Amaya MD 31 [place], [place] [phone] 04/17/2025 11:00 AM EDT [facility] [address] 100 [place] [address] Papito Degroot MD [address] [facility] [address] [place], [place] [phone] documented as of this encounter Procedures Procedure Name Priority Date/Time Associated Diagnosis Comments (REPORT) SARS COV-2 RNA (COVID-19), QUAL Routine 04/09/2020 9:27 AM EDT Encounter for laboratory testing for COVID-19 virus [ICD-10-CM] documented in this encounter Results * SARS CoV-2 RNA (COVID-19), Qual (04/09/2020 9:27 AM EDT) [facility] SARS CoV 2 RNA, Qual NOT DETECTED NOT DETECTED 04/10/2020 9:[address] [facility] Comment: A [...] providers and patients using the following websites: https://www.Adways Inc..Valor Medical/home/Covid-19/HCP/QuestLDTP/ fact-sheet https://www.Kinetek Sports/home/Covid-19/Patients/QuestLDTP/ fact-sheet.html This test has been authorized by the FDA under an Emergency Use Authorization (EUA) for use by authorized laboratories. Due to the current public health emergency, [employer] is receiving a high volume of samples [...] about COVID-19 can be found at the [employer] website: www.Twingly.Valor [employer]/Covid19. Microbiology Nasopharyngeal swab / Unknown 04/09/2020 9:27 AM EDT 04/09/2020 9:27 AM EDT Narrative [facility] - 04/10/2020 9:00 PM EDT Performing Organization Information: Site ID: [id number] Name: [employer] Address: [address] [place] [address],[place] [address] Director: EMIR KINGSTON MD Performed at [employer] License number [id number] Ronen Juarez PA-C BODY FLUIDS AND STOOLS OR DERABLES Final Result Performing Organization Address City/State/[facility] Co de Phone Number [facility] documented in this encounter Visit Diagnoses Diagnosis Encounter for laboratory testing for COVID-19 virus documented in this encounter Care Teams Professional System Administrator Relationship Specialty Start Date End Date Pcp, No PCP - General General Medicine 06/20/24 documented as of this encounter
--- OUTSIDE RECORDS SUMMARY | 2025-04-08 09:15 | XMS_ITS | Encounter Summary ---
Author Organization [facility] Address [address] [place] [address] Care Team Providers Care Spragger Name Role Phone Pcp, No Primary Care Provider Unavailabl e Encounter Details Date Type Department Care Team (Late st Contact Info) Description 06/11/2020 Lab Requisition EM Lab DOC: Delroy Ca [address] [place] [phone] Ronen Juarez, JASMYNE [address] [place] [address] Encounter for laboratory testing for COVID-19 virus [...] Info) Description 04/10/2025 7:00 AM EDT Treatment [facility] [address] [place], [place] [phone] Eliecer Betancourt, PT 330 [place] [address] 04/15/2025 7:30 AM EDT Treatment [facility] [address] [place] [address] Eros Morris, PT [address] [facility] [place], [place] [address] 04/17/2025 7:30 AM EDT Treatment [facility] [address] [place] [address] Elen Cui, PT [address] [place] [address] 04/17/2025 8:30 AM EDT [facility] [address] [place], [place] [address] Vin Amaya MD 31 [place], [place] [phone] 04/17/2025 11:00 AM EDT [facility] [address] 100 [place] [address] Papito Degroot MD 499 [facility] [address] [place], [place] [address] documented as of this encounter Procedures Procedure Name Priority Date/Time Associated Diagnosis Comments (REPORT) SARS COV-2 RNA (COVID-19), QUAL Routine 06/11/2020 7:06 AM EST Encounter for laboratory testing for COVID-19 virus [ICD-10-CM] documented in this encounter Results * SARS CoV-2 RNA (COVID-19), Qual (06/11/2020 7:06 AM EST) [facility] SARS CoV 2 RNA, Qual NOT DETECTED NOT DETECTED 06/15/2020 6:00 PM EST [facility] Comment: A Not Detected (negative) [...] providers and patients using the following websites: https://www.Silverback Media.imbookin (Pogby)/home/Covid-19/HCP/QuestLDT/ fact-sheet.html https://www.Silverback Media.imbookin (Pogby)/home/Covid-19/Patients/QuestLDT/ fact-sheet.html This test has been authorized by the FDA under an Emergency Use Authorization (EUA) for use by authorized laboratories. Due to the current public health emergency, [employer] is receiving a high volume of samples [...] Methodology: Nucleic Acid Amplification Test (NAAT) includes RT-PCR or TMA Additional information about COVID-19 can be found at the [employer] website: www.Health Data Minder.imbookin (Pogby)/Covid19. Microbiology Nasopharyngeal swab / Unknown 06/11/2020 7:06 AM EST 06/11/2020 7:06 AM EST [facility] - 06/15/2020 6:00 PM EST Performing Organization Information: Site ID: [id number] Name: [employer] Address: [address] [place] [address],[place] [address] Director: EMIR KINGSTON MD [facility]formed at [facility] number [id number] Ronen Juarez PA-C BODY FLUIDS AND STOOLS OR DERABLES Final Result [facility] documented in this encounter Visit Diagnoses Diagnosis Encounter for laboratory testing for COVID-19 virus documented in this encounter Care Teams Spragger Relationship Specialty Start Date End Date Pcp, No PCP - General General Medicine 06/20/24 documented as of this encounter
--- OUTSIDE RECORDS SUMMARY | 2025-04-08 09:15 | XMS_ITS | Encounter Summary ---
Author Organization [facility] Address [address] [place] [address] Care Team Providers Care Marketing Analytics Analyst Name Role Phone Pcp, No Primary Care Provider Unavailabl e Encounter Details Date Type Department Care Team (Late st Contact Info) Description 02/06/2020 Lab Requisition EM Lab DOC: Delroy Ca [address] [place] [phone] Ronen Juarez, JASMYNE [address] [place] [address] Encounter for laboratory testing for COVID-19 virus [...] Info) Description 04/10/2025 7:00 AM EDT Treatment [facility] [address] [place], [place] [phone] Eliecer Betancourt, PT 330 [place] [address] 04/15/2025 7:30 AM EDT Treatment [facility] [address] [place] [address] Eros Morris, PT [address] [facility], [place] [address] 04/17/2025 7:30 AM EDT Treatment [facility] [address] [place] [facility] [place] [address] Elen Cui, PT [address] [facility] [place] [address] 04/17/2025 8:30 AM EDT [facility] [address] [place], [place] [address] Vin Amaya MD 31 [place], [place] [phone] 04/17/2025 11:00 AM EDT [facility] [address] 100 [place] [address] Papito Degroot MD 499 [facility] [address] [place], [place] [phone] documented as of this encounter Procedures Procedure Name Priority Date/Time Associated Diagnosis Comments (REPORT) SARS COV-2 RNA (COVID-19), QUAL Routine 02/06/2020 7:06 AM EDT Encounter for laboratory testing for COVID-19 virus [ICD-10-CM] documented in this encounter Results * SARS CoV-2 RNA (COVID-19), Qual (02/06/2020 7:06 AM EDT) [facility] SARS CoV 2 RNA, Qual NOT DETECTED NOT DETECTED 02/07/2020 3:00 PM EDT [facility] Comment: A Not Detected (negative) [...] providers and patients using the following websites: https://www.DemystData.Klinq/home/Covid-19/HCP/QuestLDTP/ fact-sheet https://www.PGP [employer]Center/home/Covid19/Patients/QuestLDTP/ fact-sheet.html This test has been authorized by the FDA under an Emergency Use Authorization (EUA) for use by authorized laboratories. Due to the current public health emergency, [employer] is receiving a high volume of samples [...] about COVID-19 can be found at the [employer] website: www.Encore Interactive.Klinq/Covid19. Microbiology Nasopharyngeal swab / Unknown 02/06/2020 7:06 AM EDT 02/06/2020 7:06 AM EDT [facility] - 02/07/2020 3:00 PM EDT Performing Organization Information: Site ID: [id number] Name: [employer] Address: [address] [place] [address],[address] [place] [phone] Director: EMIR KINGSTON MD [facility] at [facility] number [id number] Ronen Juarez PA-C BODY FLUIDS AND STOOLS OR DERABLES Final Result [facility] documented in this encounter Visit Diagnoses Diagnosis Encounter for laboratory testing for COVID-19 virus documented in this encounter Care Teams Marketing Analytics Analyst Relationship Specialty Start Date End Date Pcp, No PCP - General General Medicine 06/20/24 documented as of this encounter
--- OUTSIDE RECORDS SUMMARY | 2025-04-08 09:16 | XMS_ITS | Encounter Summary ---
Author Organization [facility] Address [address] [place] [address] Care Team Providers Care Silver Service Waiter Name Role Phone Pcp, No Primary Care Provider Unavailabl e Encounter Details Date Type Department Care Team (Late st Contact Info) Description 10/14/2024 Scanned Document [facility] [address] [place] [address] Papito Degroot MD [address] [place] [address] [address] [place] [address] Social History Tobacco Use Types Packs/Day Years [...] Info) Description 04/10/2025 7:00 AM EDT [facility] [address] [place], [place] [phone] Eliecer Betancourt, PT [address] [place] [address] 04/15/2025 7:30 AM EDT [facility] [address] [place] [address] Eros Morris, PT [address] [facility], [place] [address] 04/17/2025 7:30 AM EDT Treatment [facility] [address] [facility] [place] [address] Elen Cui, PT 1025 [place] [address] 04/17/2025 8:30 AM EDT [facility] [address] [address] Vin Amaya MD [address] [place] [address] 04/17/2025 11:00 AM EDT [facility] [address] 100 [place] [address] Papito Degroot MD [address] [place] [address] [address] [place], [place] [address] documented as of this encounter Visit Diagnoses Not on filedocumented in this encounter Care Teams Silver Service Waiter Relationship Specialty Start Date End Date Pcp, No PCP - General General Medicine 06/20/24 documented as of this encounter
--- OUTSIDE RECORDS SUMMARY | 2025-04-08 09:16 | XMS_ITS | Continuity of Care Document ---
Author Organization [facility] Address [address] [facility] [address] [place] [address] Insurance Providers Payer Plan Claims Address Claims Phone Policy Number Group Number Relation Employer Guarantor Name Guarantor Guarantor Address Guarantor Phone [employer] [address], [place] [address] tel:[phone] [id number] Blue Cross PPO [id number] Self Tristen Galeana [address] [place] [id number] Problems Unknown Problems Results Test Result Date/Time Value / Unit Interp. Refere [facility] Range LIPID PANEL, STANDARD[7600] Collected: 11/04/2022 11:37 AM Specimen Received: 11/04/2022 11:38 AM Source: QuestFASTING:YESFASTING: YES CHOLESTEROL, TOTAL [[id number]] 11/06/2022 09:23 PM 128 mg/dL N 200 mg/dL HDL CHOLESTEROL [[id number]] 11/06/2022 09:23 PM 43 mg/dL N > OR = 40 mg/dL TRIGLYCERIDES [[id number]] 11/06/2022 09:2 3 PM 80 mg/dL N 150 mg/dL LDL-CHOLESTEROL [[id number]] 11/06/2022 09:23 PM 69 mg/dL (calc) N Reference range: or = 2 CHD risk factors. LDL-C is now calculated using the Yanick calculation, which is a validated novel method providing better accuracy than the Friedewald equation in the estimation of LDL-C. Aba BREWER et al. TOLU. 2013;310(19): 3906-8323 (http://education.SHADOW.SugarSync/faq/CRE793) CHOL/HDLC RATIO [[id number]] 11/06/2022 09:23 PM 3.0 (calc) N 5.0 (calc) NON HDL CHOLESTEROL [[id number]] 11/06/2022 09:23 PM 85 mg/dL (calc) N 130 mg/dL (calc) For patients with diabetes p marielle 1 major ASCVD risk factor, treating to a non-HDL-C goal of 100 mg/dL (LDL-C of <70 mg/dL) is considered a therapeutic option. ALBUMIN, RANDOM URINE W/CREA TININE[6517] Collected: 11/04/2022 11:37 AM Specimen Received: 11/04/2022 11:38 AM Source: QuestFASTING:YESFASTING: YES CREATININE, RANDOM URINE [[id number]] 11/06/2022 09:23 PM 155 mg/dL N 20-320 mg/dL ALBUMIN, URINE [[id number]] 11/06/2022 09: 23 PM 0.2 mg/dL N See Note: mg/dL Reference Range:Reference Ra ngeNot established ALBUMIN/CREATININE RATIO, RANDOM URINE [[id number]] 11/06/2022 09:23 PM 1 mcg/mg creat N 30 mcg/mg creat The ADA defines abnormalitie s in albuminexcretion as follows: Albuminuria Category Result (mcg/mg creatinine) Normal to Mildly increased OR = 300 The ADA recommends that at least two of threespecimens collected within a 3-6 month period beabnormal before considering a patient to bewithin a diagnostic category. COMPREHENSIVE METABOLIC PANE L[[id number]] Collected: 11/04/2022 11:37 AM Specimen Received: 11/04/2022 11:38 AM Source: QuestFASTING:YESFASTING: YES GLUCOSE [[id number]] 11/06/2022 09:23 PM 94 mg/dL N 65-99 mg/dL Fasting reference interval UREA NITROGEN (BUN) [[id number]] 11/06/2022 09:23 PM 14 mg/dL N 7-25 mg/dL CREATININE [[id number]] 11/06/2022 09:23 PM 1.06 mg/dL N 0.60-1.29 mg/dL EGFR [[id number]] 11/06/2022 09:23 PM 89 mL/min/1.73m2 N > OR = 60 mL/min/1.73m2 The eGFR is based on the CKD -EPI 2020 equation. To calculate the new eGFR from a previous Creatinine or Cystatin Cresult, go to https://www.kidney.org/professionals/kdoqi/gfr%5Fcalculator BUN/CREATININE RATIO [[id number]] 11/06/2022 09:23 PM NOT APPLICABLE (calc) 6-22 (calc) SODIUM [[id number]] 11/06/2022 09:23 PM 139 mmol/L N 135-146 mmol/L POTASSIUM [[id number]] 11/06/2022 09:23 PM 4.2 mmol/L N 3.5-5.3 mmol/L CHLORIDE [[id number]] 11/06/2022 09:23 PM 105 mmol/L N 98-110 mmol/L CARBON DIOXIDE [[id number]] 11/06/2022 09: 23 PM 25 mmol/L N 20-32 mmol/L CALCIUM [[id number]] 11/06/2022 09:23 PM 9.0 mg/dL N 8.6-10.3 mg/dL PROTEIN, TOTAL [[id number]] 11/06/2022 09: 23 PM 6.9 g/dL N 6.1-8.1 g/dL ALBUMIN [[id number]] 11/06/2022 09:23 PM 4.3 g/dL N 3.6-5.1 g/dL GLOBULIN [[id number]] 11/06/2022 09:23 PM 2.6 g/dL (calc) N 1.9-3.7 g/dL (calc) ALBUMIN/GLOBULIN RATIO [[id number]] 11/06/2022 09:23 PM 1.7 (calc) N 1.0-2.5 (calc) BILIRUBIN, TOTAL [[id number]] 11/06/2022 09:23 PM 1.0 mg/dL N 0.2-1.2 mg/dL ALKALINE PHOSPHATASE [[id number]] 11/06/2022 09:23 PM 82 U/L N 36-130 U/L AST [[id number]] 11/06/2022 09:23 PM 15 U/L N 10-40 U/L ALT [[id number]] 11/06/2022 09:23 PM 24 U/L N 9-46 U/L HEMOGLOBIN A1c[[id number]] Collected: 11/04/2022 11:37 AM Specimen Received: 11/04/2022 11:38 AM Source: QuestFASTING:YESFASTING: YES HEMOGLOBIN A1c [[id number]] 11/06/2022 09: 23 PM 8.1 % of total Hgb H 5.7 % of total Hgb For someone without known di abetes, a hemoglobin G5ejxawa of 6.5% or greater indicates that they [...] of diabetes for children. Clinical PDF Report [id number][ClinicalPDFReport1] Collected: 11/04/2022 11:37 AM Specimen Received: 11/04/2022 11:38 AM Source: QuestFASTING:YESFASTING: YES Clinical PDF Report [id number] [ClinicalPDFReport1] TSERING Allergies, adverse reactions, alerts No known allergies and adverse reactions Medications No administered medications reported Vital Signs No vital signs reported Social History No smoking Hx information available
--- OUTSIDE RECORDS SUMMARY | 2025-04-08 09:16 | XMS_ITS | Encounter Summary ---
Author Organization [facility] Address [address] [place] [address] Care Team Providers Care Supervisor Beam Department Name Role Phone Pcp, No Primary Care Provider Unavailabl e Encounter Details Date Type Department Care Team (Late st Contact Info) Description 11/27/2024 Scanned Document [facility] [address] [phone] Ariela Mendez MD 31 [facility] [address] [place] [address] Social History Tobacco Use Types Packs/Day Years [...] Info) Description 04/10/2025 7:00 AM EDT Treatment [facility] [address] [place], [place] [phone] Eliecer Betancourt, PT [address] [place] [address] 04/15/2025 7:30 AM EDT [facility] [address] [place], [place] [phone] Eros Morris, PT [address] [place] [address] 04/17/2025 7:30 AM EDT Treatment [facility] [address] [facility] [place], [place] [phone] Elen Cui, PT 1025 [place] [address] 04/17/2025 8:30 AM EDT [facility] [address] [place] [address] Vin Amaya MD [address] [place] [address] 04/17/2025 11:00 AM EDT [facility] [address] [place] [address] Papito Degroot MD [address] [place] [address] [address] [place], [place] [address] documented as of this encounter Visit Diagnoses Not on filedocumented in this encounter Care Teams Supervisor Beam Department Relationship Specialty Start Date End Date Pcp, No PCP - General General Medicine 06/20/24 documented as of this encounter
--- OUTSIDE RECORDS SUMMARY | 2025-04-08 09:16 | XMS_ITS | Clinical Summary ---
Author Organization [facility] Address [address] [place] [address] Phone Care Team Providers Care Sink Maker Name Role Phone Shameka Don DO Primary [...] Surgery Date Site/Laterality Comments VASECTOMY 2006 PROCEDURE: MT VASECTOMY UNI/BI SPX W/POSTOP SEMEN EXAMS Medical [...] Health Maintenance Due Date Last Done Comments Colorectal Cancer Screening: Colonoscopy 1978 Hepatitis B Vaccines (1 of 3 - 19+ 3-dose series) 1997 DTaP,Tdap,and Td Vaccines (2 - Td or Tdap) 08/29/2017 08/29/2007 Cholesterol Screening (Lipid Panel) 06/03/2024 HIV Screening 06/03/2024 Hepatitis C Screening 06/03/2024 Social Influencers of Health Screening 06/03/2024 Depression Screening 07/09/2024 COVID-19 Vaccine (3 - 2024-2 6 season) 2025 09/17/2020, 08/20/2020 Influenza Vaccine (#1) 2025 05/01/2014 RSV Immunization Adult Patients (1 - 1-dose 75+ series) 2053 HIB Vaccines Aged Out No longer eligi [...] Insurance BENJAMÍN CHEATHAM BENJAM[employer]ATHAM Care Teams Sink Maker Relationship Specialty Start Date End Date Shameka Don DO [address] [place] [address] 1 [place] [address] PCP - General Internal Medicine 06/02/24
--- OUTSIDE RECORDS SUMMARY | 2025-04-08 09:16 | XMS_ITS | Encounter Summary ---
Author Organization [facility] Address [address] [place] [address] Care Team Providers Care Credit Investigator Name Role Phone Pcp, No Primary Care Provider Unavailabl e Encounter Details Date Type Department Care Team (Late st Contact Info) Description 09/05/2024 Scanned Document [facility] [address] [address] Vin Amaya MD [address] [place] [address] Social History Tobacco Use Types Packs/Day Years [...] Info) Description 04/10/2025 7:00 AM EDT [facility] [address] [place], [place] [phone] Eliecer Betancourt, PT [address] [place] [address] 04/15/2025 7:30 AM EDT [facility] [address] [place], [place] [phone] Eros Morris, PT [address] [facility], [place] [address] 04/17/2025 7:30 AM EDT Treatment [facility] [address] [place] [facility] [place] [address] Elen Cui, PT 10[address] [place] [address] 04/17/2025 8:30 AM EDT [facility] [address] [place], [place] [address] Vin Amaya MD [address] [place] [address] 04/17/2025 11:00 AM EDT [facility] [address] 100 [place] [address] Papito Degroot MD [address] [place] [address] [address] [place], [place] [address] documented as of this encounter Visit Diagnoses Not on filedocumented in this encounter Care Teams Credit Investigator Relationship Specialty Start Date End Date Pcp, No PCP - General General Medicine 06/20/24 documented as of this encounter
--- OUTSIDE RECORDS SUMMARY | 2025-04-08 09:16 | XMS_ITS | Encounter Summary ---
Author Organization [facility] Address [address] [place] [address] Care Team Providers Care Vest Presser Name Role Phone Pcp, No Primary Care Provider Unavailabl e Encounter Details Date Type Department Care Team (Late st Contact Info) Description 01/30/2025 Scanned Document [facility] [address] [place] [address] Alis Schafer 499 [facility] [address] [place] [address] Social History Tobacco Use Types Packs/Day Years [...] 7:00 AM EDT Treatment [facility] [address] [place] [address] Eliecer Betancourt, PT [address] [place] [address] 04/15/2025 7:30 AM EDT Treatment [facility] [address] [place], [place] [phone] Eros Morris, PT [address] [place] [address] 04/17/2025 7:30 AM EDT Treatment [facility] [address] [place] [address] Elen Cui, PT 10[address] [place] [address] 04/17/2025 8:30 AM EDT [facility] [address] 303 [place], [place] [address] Vin Amaya MD 31 [place], [place] [id number] 04/17/2025 11:00 AM EDT [facility] [address] 100 [place] [address] Papito Degroot MD 499 [facility] 300 [place], [place] [address] documented as of this encounter Goals Goal [...] on filedocumented in this encounter Care Teams Vest Presser Relationship Specialty Start Date End Date Pcp, No PCP - General General Medicine 06/20/24 documented as of this encounter
--- OUTSIDE RECORDS SUMMARY | 2025-04-08 09:16 | XMS_ITS | Encounter Summary ---
Author Organization [facility] Address [address] [place] [address] Care Team Providers Care Supervisor Nutritional Yeast Name Role Phone Pcp, No Primary Care Provider Unavailabl e Encounter Details Date Type Department Care Team (Latest Contact Info) Description 04/08/2025 Travel Social History Tobacco Use Types Packs/Day Years [...] Info) Description 04/10/2025 7:00 AM EDT Treatment [facility] [address] [place], [place] [phone] Eliecer Betancourt, PT [address] [place], [place] [address] 04/15/2025 7:30 AM EDT [facility] [address] [place] [phone] Eros Morris, PT 18 [facility] [address] [place], [place] [address] 04/17/2025 7:30 AM EDT Treatment [facility] [address] [place] [address] Elen Cui, PT [address] [place] [address] 04/17/2025 8:30 AM EDT [facility] [address] [facility] [address] [place], [place] [address] Vin Amaya MD 31 [place], [place] [phone] 04/17/2025 11:00 AM EDT [facility] [address] 100 [place] [address] Papito Degroot MD 499 [facility] 300 [place], [place] [address] documented as of this encounter Goals Goal Patient Goal Type Associated Problems Recent Progress Patient-Stated? Author PT LTG 1 Physical Therapy No Eliecer Betancourt, PT Note: Pt will demonstrate independence with HEP in 12 weeks PT LTG 2 Physical Therapy No Eliecer Betancourt, JANELLE Note: Pt will improve standing tolerance to 2 hour to improve house chores in 6 weeks documented as of this encounter Visit Diagnoses Not on filedocumented in this encounter Care Teams Supervisor Nutritional Yeast Relationship Specialty Start Date End Date Pcp, No PCP - General General Medicine 06/20/24 documented as of this encounter
--- OUTSIDE RECORDS SUMMARY | 2025-04-08 09:16 | XMS_ITS | Encounter Summary ---
Author Organization [facility] Address [address] [place] [address] Care Team Providers Care Heat Welder Plastics Name Role Phone Pcp, No Primary Care Provider Unavailabl e Encounter Details Date Type Department Care Team (Late st Contact Info) Description 03/05/2025 Scanned Document [facility] [address] [place] [address] Papito Degroot MD [address] [place] [address] Ave [address] [place] [address] Social History Tobacco Use Types Packs/Day Years [...] Info) Description 04/10/2025 7:00 AM EDT [facility] [address] [place], [place] [phone] Eliecer Betancourt, PT 330 [place] [address] 04/15/2025 7:30 AM EDT [facility] [address] [place] [phone] Eros Morris, PT [address] [place] [address] 04/17/2025 7:30 AM EDT Treatment [facility] [place] [address] [place] [address] Elen Cui, PT 10[address] [place], [place] [phone] 04/17/2025 8:30 AM EDT [facility] [address] 303 [place], [place] [address] Vin Amaya MD 31 [place], [place] [phone] 04/17/2025 11:00 AM EDT Office Visit [facility] [address] 100 [place] [address] Papito Degroot MD [address] [place], [place] [address] documented as of this encounter Goals Goal [...] on filedocumented in this encounter Care Teams Heat Welder Plastics Relationship Specialty Start Date End Date Pcp, No PCP - General General Medicine 06/20/24 documented as of this encounter
--- OUTSIDE RECORDS SUMMARY | 2025-04-08 09:16 | XMS_ITS | Encounter Summary ---
Author Organization [facility] Address [address] [place] [address] Care Team Providers Care Customer Counter Associate Name Role Phone Pcp, No Primary Care Provider Unavailabl e Encounter Details Date Type Department Care Team (Late st Contact Info) Description 03/05/2025 Scanned Document [facility] [address] [place] [address] Papito Degroot MD [address] [place] [address] [address] [place] [address] Social History Tobacco Use Types Packs/Day Years [...] Info) Description 04/10/2025 7:00 AM EDT [facility] [address] [place], [place] [phone] Eliecer Betancourt, PT [address] [place] [address] 04/15/2025 7:30 AM EDT [facility] [address] [place], [place] [phone] Eros Morris, PT [address] [place] [address] 04/17/2025 7:30 AM EDT Treatment [facility] [place] [address] [place] [address] Elen Cui, PT [address] [place], [place] [phone] 04/17/2025 8:30 AM EDT [facility] [address] 303 [place], [place] [address] Vin Amaya MD 31 [place], [place] [address] 04/17/2025 11:00 AM EDT Office Visit [facility] [address] 100 [place] [address] Papito Degroot MD 499 [facility] [address] [place], [place] [address] documented as of this encounter Goals Goal [...] on filedocumented in this encounter Care Teams Customer Counter Associate Relationship Specialty Start Date End Date Pcp, No PCP - General General Medicine 06/20/24 documented as of this encounter
--- OUTSIDE RECORDS SUMMARY | 2025-04-08 09:16 | XMS_ITS | Clinical Summary ---
Author Organization [facility] Address [address] [place] [address] Care Team Providers Care Housecleaner Name Role Phone Pcp, No Primary Care Provider Unavailabl e Allergies No known active allergies Medications celeCOXIB (CeleBREX) 100 MG capsuleIndicatio ns:Radiculopathy , lumbosacral region Take 1 capsule (100 mg total) by mouth 2 (two) times a day. 60 capsule 11/07/2024 Active TiZANidine (ZANAFLEX) 4 MG capsuleIndicatio ns:Radiculopathy , lumbosacral region Take 1 capsule (4 mg total) by mouth 3 (three) times a day as needed for muscle spasms. 30 capsule 11/07/2024 Active Active Problems Problem Noted Date Diagnosed Date Sacroiliitis 10/31/2024 Encounters Date Type Department Care Team Description 04/08/2025 7:00 AM EDT Treatment [facility] [address] [place] [address] Ariela Mendez MD Soderquist, Jonathan, PT Chronic pain of right knee (Primary Dx) 04/08/2025 Travel 04/03/2025 7:00 AM EDT [facility] [address] [place] [address] Ariela Mendez MD Soderquist, Jonathan, PT Chronic pain of right knee (Primary Dx) 04/01/2025 7:00 AM EDT Treatment [facility] [address] [place], [place] [phone] Ariela Mendez, Eliecer Edwards, PT Chronic pain of right knee (Primary Dx) 04/01/2025 Travel 03/27/2025 7:00 AM EDT Treatment [facility] [address] [place], [place] [phone] Ariela Mendez, Eliecer Edwards, PT Chronic pain of right knee (Primary Dx) 03/25/2025 7:30 AM EDT Treatment [facility] [address] [place], [place] [phone] Ariela Mendez, Eliecer Edwards, PT Chronic pain of right knee (Primary Dx) 03/25/2025 Travel 03/20/2025 11:00 AM EDT Treatment [facility] [address] [place], [place] [phone] Ariela Mendez, Eliecer Edwards, PT Chronic pain of right knee (Primary Dx) 03/20/2025 8:00 AM EDT [facility] [address] [place] [address] Papito Degroot MD Spondylosis of lumbosacral region without myelopathy or radiculopathy (Primary Dx); Sacroiliitis; Bulge of lumbar disc without myelopathy 03/18/2025 7:00 AM EDT Treatment [facility] [address] [place], [place] [phone] Ariela Mendez MD Soderquist, Jonathan, PT Chronic pain of right knee (Primary Dx) 03/18/2025 Travel 03/13/2025 1:00 PM EDT Treatment [facility] [address] [place], [place] [phone] Ariela Mendez MD Soderquist, Jonathan, PT Chronic pain of right knee (Primary Dx) 03/13/2025 8:00 AM EDT [facility] [address] [address] Vin Amaya MD Biceps tendinitis of left upper extremity (Primary Dx); Adhesive capsulitis of left shoulder 03/11/2025 7:00 AM EDT Treatment [facility] [address] [place] [address] Ariela Mendez MD Soderquist, Jonathan, PT Chronic pain of right knee (Primary Dx) 03/11/2025 Travel 03/05/2025 Scanned Document [facility] [address] [address] Papito Degroot MD 03/05/2025 Scanned Document [facility] [address] [address] Papito Degroot MD 03/05/2025 [facility] [address] [address] Papito Degroot MD 02/27/2025 9:25 AM EDT Ancillary Procedure [facility] [address] [address] 02/27/2025 8:30 AM EDT Consult [facility] [address] [address] Brandon Melendez MD Cervical disc disorder at C5-C6 level with radiculopathy (Primary Dx); Radiculopathy, cervical region 02/05/2025 2:30 PM EDT [facility] [address] [phone] Vin Amaya MD Adhesive capsulitis of left shoulder (Primary Dx); Biceps tendinitis of left upper extremity 01/30/2025 Scanned Document [facility] [place] [address] Alis Schafer 01/27/2025 7:30 AM EDT Treatment [facility] [address] [place] [address] Ariela Mendez MD Soderquist, Jonathan, PT Chronic pain of right knee (Primary Dx) 01/27/2025 Travel 01/23/2025 8:00 AM EDT Treatment [facility] [address] [place] [address] Ariela Mendez MD Soderquist, Jonathan, PT Chronic pain of right knee (Primary Dx) 01/23/2025 Orders Only [facility] [address] [phone] Ariela Mendez MD Right knee pain, unspecified chronicity (Primary Dx) 01/23/2025 Travel 01/20/2025 7:30 AM EDT Treatment [facility] [address] [place] [address] Ariela Mendez MD McCrystal, Patrick, PT Chronic pain of right knee (Primary Dx) 01/20/2025 Travel 01/16/2025 8:30 AM EDT Treatment [facility] [address] [place] [address] Ariela Mendez MD Soderquist, Jonathan, PT Chronic pain of right knee (Primary Dx) 01/16/2025 Travel 01/08/2025 8:00 AM EDT [facility] [address] [phone] Ariela Mendez MD Right knee pain, unspecified chronicity (Primary Dx); Contusion of right knee, initial encounter 01/07/2025 Refill [facility] [address] [address] Mir [place] PA Radiculopathy, lumbosacral region 01/06/2025 7:30 AM EDT Treatment [facility] [address] [place], [place] [phone] Ariela Mendez MD McCrystal, Patrick, PT Chronic pain of right knee (Primary Dx) 01/06/2025 Travel from Last 3 Months Social History Tobacco [...] 04/10/2025 7:00 AM EDT Treatment [facility] [address] [place], [place] [phone] Eliecer Betancourt, PT [address] [place], [place] 04/15/2025 7:30 AM EDT Treatment [facility] [address] [place], [place] [phone] Eros Morris, PT [address] [place] [address] 04/17/2025 7:30 AM EDT Treatment [facility] [address] [place] [phone] Elen Cui, PT [address] [place], [place] [phone] 04/17/2025 8:30 AM EDT [facility] [address] [facility] [address] [place], [place] [address] Vin Amaya MD [address] [place], [place] [phone] 04/17/2025 11:00 AM EDT [facility] [address] [place] [address] Papito Degroot MD 499 [facility] [address] [place], [place] [address] Health Maintenance Due Date Last Done Comments Hepatitis C Virus Screening 1978 HIV Screening 09/14/1991 DTaP/Tdap/Td Vaccines (1 - Tdap) 1997 Hepatitis B Vaccines (1 of 3 - 19+ 3-dose series) 1997 Colonoscopy 09/14/2023 Influenza Vaccine 02/06/2025 05/26/2020 COVID-19 Vaccine (3 - 2024-2 6 season) 2025 09/17/2020, 08/20/2020 Pneumococcal Vaccine: Pediatric (0-5 Years) and At-Risk [...] LTG 2 Physical Therapy No Eliecer Betancourt, PT Note: Pt will improve standing tolerance to 2 hour to improve house chores in 6 weeks Procedures Procedure Name Priority Date/Time Associated Diagnosis Comments US GUIDANCE FOR INJECTION Routine 03/13/2025 8:00 AM EDT Biceps tendinitis of left upper extremity UT INJECTION 1 TENDON SHEATH/LIGAMENT APONEUROSIS Routine 03/13/2025 8:00 AM EDT Biceps tendinitis of left upper extremity XR CERVICAL SPINE AP & LAT FLEX/EXT ONLY Routine 02/27/2025 9:31 AM EDT Cervical disc disorder at C5-C6 level with radiculopathy Radiculopathy, cervical region UT ARTHROCENTESIS ASPIR&/INJ MAJOR JT/BURSA W/O US Routine 02/05/2025 2:30 PM EDT Adhesive capsulitis of left shoulder from Last 3 Months Results * UT INJECTION 1 TENDON SHEATH/LIGAMENT APONEUROSIS, US GUIDANCE FOR INJECTION (03/13/2025 8:00 AM EDT) Vin Samuels MD - 03/13/2025 8:00 AM EDT Vin Amaya MD 03/13/2025 8:28 AM Tendon Sheath Injection: left long head of biceps tendon sheath on 03/13/2025 8:00 AM Indications: pain Details: 21 G needle, ultrasound-guided anterior approach Medications: 6 mg betamethasone acetate-betamethasone sodium phosphate 6 (3-3) MG/ML Outcome: tolerated well, no immediate complications I reviewed with the patient the possible benefits of the injection including diminishing pain and improving function. I also discussed the reasonable risks of the injection including, but not limited to, infection, pain, swelling, failure to alleviate symptoms, skin depigmentation, and subcutaneous fat atrophy. Diabetic patients may see a transient, but significant elevation in blood glucose levels and are encouraged to watch for this. The patient elected to proceed. The right shoulder was confirmed as the correct site. Initial anesthetic was provided with 3cc of 1% lidocaine and ethyl chloride spray. I instructed the patient to apply ice to the knee for 20 minutes of each hour, several times per day for the next 1-2 days. Procedure, treatment alternatives, risks and benefits explained, specific risks discussed. Consent was given by the patient. Immediately prior to procedure a time out was called to verify the correct patient, procedure, equipment, product support specialist and site/side marked as required. Patient was prepped and draped in the usual sterile fashion. Vin Amaya MD PROCEDURE/MINOR SURGICAL ORDERA BLES Final Result * XR Cervical Spine AP & LAT Flex/Ext ONLY (02/27/2025 9:31 AM EDT) Narrative OA - 02/27/2025 9:31 AM EDT This exam was performed in office at [facility] and images reviewed by orthopedic provider. Any findings are documented within ambulatory encounter note on date of service. Brandon Melendez MD IMG DIAGNOSTIC IMAGING ORDER LALY Final Result [facility] * UT ARTHROCENTESIS ASPIR&/INJ MAJOR JT/BURSA W/O US (02/05/2025 2:30 PM EDT) Narrative Vin Amaya MD - 02/05/2025 2:30 PM EDT Vin Amaya MD 02/05/2025 5:28 PM Large Joint Arthrocentesis: L glenohumeral on 02/05/2025 2:30 PM Indications: pain Details: 21 G needle, posterior approach Medications: 12 mg betamethasone acetate-betamethasone sodium phosphate 6 (3-3) MG/ML Outcome: tolerated well, no immediate complications I reviewed with the patient the possible benefits of the injection including diminishing pain and improving function. I also discussed the reasonable risks of the injection including, but not limited to, infection, pain, swelling, failure to alleviate symptoms, skin depigmentation, and subcutaneous fat atrophy. Diabetic patients may see a transient, but significant elevation in blood glucose levels and are encouraged to watch for this. The patient elected to proceed. The left shoulder was confirmed as the correct site. Initial anesthetic was provided with ethyl chloride spray. I instructed the patient to apply ice to the shoulder for 20 minutes of each hour, several times per day for the next 1-2 days. Procedure, treatment alternatives, risks and benefits explained, specific risks discussed. Consent was given by the patient. Immediately prior to procedure a time out was called to verify the correct patient, procedure, equipment, product support specialist and site/side marked as required. Patient was prepped and draped in the usual sterile fashion. Vin Amaya MD PROCEDURE/MINOR SURGICAL ORDERA BLES Final Result from Last 3 Months Insurance BENJAMÍN CHEATHAM/ [place] BENJAMÍN CHEATHAM [facility] [employer] Care Teams Housecleaner Relationship Specialty Start Date End Date Pcp, No PCP - General General Medicine 06/20/24
[2025-04-08 10:08] LABS: Alanine Aminotransferase 34 U/L (0-40); Albumin Level 4.7 g/dL (3.5-5.0); Alkaline Phosphatase 112 U/L (39-117); Anion Gap 12 (12-20); Aspartate Amino Transferase 19 U/L (5-37); Blood Urea Nitrogen 11 mg/dL (9-16); Calcium 9.6 mg/dL (8.4-10.2); Carbon Dioxide 26 mmol/L (22-29); Chloride 108 mmol/L (96-108); Estimated Glomerular Filt Rate > 60; Potassium 4.2 mmol/L (3.3-5.1); Sodium 142 mmol/L (135-145); Total Protein 7.3 g/dL (6.5-8.0)
[2025-04-08 11:20] LABS: Microalbum/Creatinine Ratio Ur 5.1 ug/mg cr (<30)
== END 2025-04-08 08:41 | disposition home or self-care (01) ==
LOC: HO.LAB 08:40
PROVIDERS: PCP Internal Medicine; Visit Provider Internal Medicine
DX: Z13.228 Encounter for screening for other metabolic disorders (principal)
CPT/HCPCS: 36415; 80053; 82043; 82570

== ENCOUNTER 2025-06-26 11:59 | Day surgery (SDC) | payer BC, SELFPAY ==
--- OUTSIDE RECORDS SUMMARY | 2025-05-28 08:08 | XMS_ITS | Encounter Summary ---
Author Organization [facility] Address [address] [place] [address] Care Team Providers Care Geological Science Teacher Name Role Phone Pcp, No Primary Care Provider Unavailabl e Encounter Details Date Type Department Care Team (Late st Contact Info) Description 04/14/2025 Scanned Document [facility] [address] [phone] Brandon Melendez MD [address] [place] [address] Social History Tobacco Use Types Packs/Day Years Used Date Smoking Tobacco: Never Assessed Sex and Gender Information Value Date Recorded Sex Assigned at Male 06/03/2024 2:34 PM EST Legal Sex Male 5:01 PM EDT Gender Identity Male 06/03/2024 2:34 PM EST Sexual Orientation Heterosexual (straight) 06/04 2:10 PM EST documented as of this encounter Plan of Treatment Not on file documented as of this encounter Goals Goal Patient Goal Type Associated Problems Recent Progress Patient-Stated? Author PT LTG 1 Physical Therapy No Eliecer Betancourt, PT Note: Pt will demonstrate independence with HEP in 12 weeks 04/15/25 mostly met PT LTG 2 Physical Therapy No Eliecer Betancourt, JANELLE Note: Pt will improve standing tolerance to 2 hour to improve house chores in 6 weeks 04/15/25 mostly met PT LTG 3 Physical Therapy No McCrystal, Eros, PT Note: Squat without pain 04/15/25 pt able to squat to 90 degrees before pain is present Sit/drive 2 hours without pain 04/15/25 1 hour Lefs=50 04/15/25=32 documented as of this encounter Visit Diagnoses Not on filedocumented in this encounter Care Teams Geological Science Teacher Relationship Specialty Start Date End Date Pcp, No PCP - General General Medicine 06/20/24 documented as of this encounter
--- OUTSIDE RECORDS SUMMARY | 2025-05-28 08:08 | XMS_ITS | Encounter Summary ---
Author Organization [facility] Address [address] [place] [address] Care Team Providers Care Endless Track Vehicle Mechanic Name Role Phone Pcp, No Primary Care Provider Unavailabl e Encounter Details Date Type Department Care Team (Late st Contact Info) Description 03/05/2025 Scanned Document [facility] [place] [address] [place] [address] Papito Degroot MD [address] [place], [place] [address] [address] [place] [address] Social History Tobacco Use Types Packs/Day Years [...] chores in 6 weeks 04/15/25 mostly met documented as of this encounter Visit Diagnoses Not on filedocumented in this encounter Care Teams Endless Track Vehicle Mechanic Relationship Specialty Start Date End Date Pcp, No PCP - General General Medicine 06/20/24 documented as of this encounter
--- OUTSIDE RECORDS SUMMARY | 2025-05-28 08:08 | XMS_ITS | Clinical Summary ---
Author Organization Formerly [facility] Address [address] [place] [address] Care Team Providers Care Reproduction Machine Loader Name Role Phone Pcp, No Primary Care [...] Encounters Date Type Department Care Team Description 05/22/2025 2:30 PM EST Office Visit Orthopedic [address] [phone] Brandon Melendez MD Cervicalgia (Primary Dx) 05/22/2025 10:30 AM EST Office Visit Orthopedic [address] [place] [address] Vin Amaya MD Adhesive capsulitis of left shoulder (Primary Dx); Biceps tendinitis of left upper extremity 05/19/2025 9:00 AM EST Office Visit [facility] [address] [facility] [address] [place] [address] Ariela Mendez MD Contusion of right knee, initial encounter (Primary Dx) 05/19/2025 Scanned Document [facility] [address] [address] Esau Sampson MA 05/05/2025 7:54 AM EDT - 05/05/2025 11:59 PM EDT Hospital Encounter [facility] [address] [facility] [address] [place] [phone] Brandon Melendez MD Cervical disc disorder at C5-C6 level with radiculopathy; Radiculopathy, cervical region Discharge Disposition: Home or Self Care 05/05/2025 Travel 04/20/2025 7:00 AM EDT Treatment [facility] [address] [place] [address] Ariela Mendez MD Armstrong, Natalie M, PT Chronic pain of right knee (Primary Dx) 04/20/2025 Travel 04/17/2025 11:00 AM EDT [facility] [address] [phone] Papito Degroot MD Spondylosis of lumbosacral region without myelopathy or radiculopathy (Primary Dx); Sacroiliitis; Bulge of lumbar disc without myelopathy; Radiculopathy, lumbosacral region 04/17/2025 8:30 AM EDT [facility] [address] [place] [address] Vin Amaya MD Biceps tendinitis of left upper extremity (Primary Dx); Adhesive capsulitis of left shoulder 04/15/2025 7:30 AM EDT Treatment [facility] [address] [facility] [place] [phone] Ariela Mendez MD McCrystal, Patrick, PT Chronic pain of right knee (Primary Dx) 04/15/2025 Travel 04/14/2025 Scanned Document [address] [place] [address] Primary Care, Scan 04/14/2025 Scanned Document [facility] [address] [place] [address] Brandon Melendez MD 04/10/2025 7:00 AM EDT Treatment [facility] [address] [place], [place] [phone] Ariela Mendez MD Soderquist, Jonathan, PT Chronic pain of right knee (Primary Dx) 04/08/2025 7:00 AM EDT Treatment [facility] [address] [place], [place] [phone] Ariela Mendez MD Soderquist, Jonathan, PT Chronic pain of right knee (Primary Dx) 04/08/2025 Travel 04/03/2025 7:00 AM EDT Treatment [facility] [address] [place], [place] [phone] Ariela Mendez MD Soderquist, Jonathan, PT Chronic pain of right knee (Primary Dx) 04/01/2025 7:00 AM EDT Treatment [facility] [address] [place] [phone] Ariela Mendez MD Soderquist, Jonathan, PT Chronic pain of right knee (Primary Dx) 04/01/2025 Travel 03/27/2025 7:00 AM EDT Treatment [facility] [address] [place] [phone] Ariela Mendez MD Soderquist, Jonathan, PT Chronic pain of right knee (Primary Dx) 03/25/2025 7:30 AM EDT Treatment [facility] [address] [place], [place] [phone] Ariela Mendez MD Soderquist, Jonathan, PT Chronic pain of right knee (Primary Dx) 03/25/2025 Travel 03/20/2025 11:00 AM EDT Treatment [facility] [address] [place], [place] [phone] Ariela Mendez MD Soderquist, Jonathan, PT Chronic pain of right knee (Primary Dx) 03/20/2025 8:00 AM EDT [facility] [address] [place] [address] Papito Degroot MD Spondylosis of lumbosacral region without myelopathy or radiculopathy (Primary Dx); Sacroiliitis; Bulge of lumbar disc without myelopathy 03/18/2025 7:00 AM EDT Treatment [facility] [address] [place], [place] [phone] Ariela Mendez MD Soderquist, Jonathan, PT Chronic pain of right knee (Primary Dx) 03/18/2025 Travel 03/13/2025 1:00 PM EDT Treatment [facility] [address] [place] [address] Ariela Mendez MD Soderquist, Jonathan, PT Chronic pain of right knee (Primary Dx) 03/13/2025 8:00 AM EDT [facility] [address] [address] Vin Amaya MD Biceps tendinitis of left upper extremity (Primary Dx); Adhesive capsulitis of left shoulder 03/11/2025 7:00 AM EDT Treatment [facility] [address] [place] [address] Ariela Mendez MD Soderquist, Jonathan, PT Chronic pain of right knee (Primary Dx) 03/11/2025 Travel 03/05/2025 Scanned Document [facility] [address] [phone] Papito Degroot MD 03/05/2025 Scanned Document [facility] [address] [address] Papito Degroot MD 03/05/2025 [facility] [address] [address] Papito Degroot MD 02/27/2025 9:25 AM EDT Ancillary Procedure [facility] [address] [place] [address] 02/27/2025 8:30 AM EDT Consult [facility] [address] [address] Brandon Melendez MD Cervical disc disorder at C5-C6 level with radiculopathy (Primary Dx); Radiculopathy, cervical region from Last 3 Months Social History Tobacco [...] Mass Index - - Plan of Treatment Health Maintenance Due Date Last Done Comments Hepatitis C Virus Screening 1978 HIV Screening 09/14/1991 DTaP/Tdap/Td Vaccines (1 - Tdap) 1997 Hepatitis B Vaccines (1 of 3 - 19+ 3-dose series) 1997 Colonoscopy 09/14/2023 COVID-19 Vaccine (2024-2 6 season) 2025 09/17/2020, 08/20/2020 Influenza Vaccine Completed 03/19/2025, 05/26/2020 Pneumococcal Vaccine: Pediatric (0-5 Years) and At-Risk Patients (6 to 49 Years) Aged Out No longer eligible b ased on patient's age to complete this topic Goals Goal Patient Goal Type Associated Problems Recent Progress Patient-Stated? Author PT LTG 1 Physical Therapy No Eliecer Betancourt PT Note: Pt will demonstrate independence with HEP in 12 weeks 04/15/25 mostly met PT LTG 2 Physical Therapy No Eliecer Betancourt PT Note: Pt will improve standing tolerance to 2 hour to improve house chores in 6 weeks 04/15/25 mostly met PT LTG 3 Physical Therapy No Eros Morris PT Note: Squat without pain 04/15/25 pt able to squat to 90 degrees before pain is present Sit/drive 2 hours without pain 04/15/25 1 hour Lefs=50 04/15/25=32 Procedures Procedure Name Priority Date/Time Associated Diagnosis Comments MRI CERVICAL SPINE W/O CONTRAST Routine 05/05/2025 9:04 AM EDT Cervical disc disorder at C5-C6 level with radiculopathy Radiculopathy, cervical region HX OUTSIDE ORDER 04/14/2025 1:28 PM EDT US GUIDANCE FOR INJECTION Routine 03/13/2025 8:00 AM EDT Biceps tendinitis of left upper extremity VA INJECTION 1 TENDON SHEATH/LIGAMENT APONEUROSIS Routine 03/13/2025 8:00 AM EDT Biceps tendinitis of left upper extremity XR CERVICAL SPINE AP & LAT FLEX/EXT ONLY Routine 02/27/2025 9:31 AM EDT Cervical disc disorder at C5-C6 level with radiculopathy Radiculopathy, cervical region from Last 3 Months Results * MRI Cervical spine w/o contrast (05/05/2025 9:04 AM EDT) Anatomical Region Laterality Modality C-spine Magnetic Resonan ce 05/05/2025 10:2 2 AM EDT Impressions 05/05/2025 12:56 PM EDT Limited views of the spinal cord signal due to artifacts within these limitations; Mild degenerative changes with mild bilateral C4-5 and C5-6 neural foraminal stenosis. Signed by: Brut Partida Narrative 05/05/2025 12:56 PM EDT EXAM: MRI CERVICAL SPINE W/O CONTRAST on 05/05/2025 7:54 AM TECHNIQUE: Sagittal T1, T2, STIR, axial T2, gradient echo sequences were obtained. IV contrast: None. COMPARISON: None. FINDINGS: There is no prevertebral soft tissue swelling. The height of the vertebral bodies are intact. Their alignment is anatomic. The bony structures demonstrate uniform marrow signal. Disc levels: C2-3: Posterior disc bulge minimally asymmetric to the right side. C3-4: Posterior disc bulge. Mild left neural foraminal stenosis. C4-5: Bilateral uncovertebral hypertrophy causing mild bilateral neural foraminal stenosis. C5-6: Posterior disc bulge. Bilateral uncovertebral hypertrophy causing mild bilateral neural foraminal stenosis. C6-7: Posterior disc bulge. C7-T1: Intervertebral disc intact. Limited views of the spinal cord signal due to artifacts The craniocervical junction is normal. Procedure Note Burt Partida MD - 05/05/2025 EXAM: MRI CERVICAL SPINE W/O CONTRAST on 05/05/2025 7:54 AM TECHNIQUE: Sagittal T1, T2, STIR, axial T2, gradient echo sequences wereobtained. IV contrast: None. COMPARISON: None. FINDINGS: There is no prevertebral soft tissue swelling. The height of the vertebralbodies are intact. Their alignment is anatomic. The bony structuresdemonstrate uniform marrow signal. Disc levels: C2-3: Posterior disc bulge minimally asymmetric to the right side. C3-4: Posterior disc bulge. Mild left neural foraminal stenosis. C4-5: Bilateral uncovertebral hypertrophy causing mild bilateral neuralforaminal stenosis. C5-6: Posterior disc bulge. Bilateral uncovertebral hypertrophy causingmild bilateral neural foraminal stenosis. C6-7: Posterior disc bulge. C7-T1: Intervertebral disc intact. Limited views of the spinal cord signal due to artifacts Thecraniocervical junction is normal. IMPRESSION: Limited views of the spinal cord signal due to artifacts within theselimitations; Mild degenerative changes with mild bilateral C4-5 and C5-6 neuralforaminal stenosis. Signed by: Burt Partida us Brandon Melendez MD IMG MRI ORDERABLES Final Res ult * OUTSIDE ORDER (04/14/2025 1:28 PM EDT) us Scan Primary Care HX AMB PROCEDURES Final Result * VA INJECTION 1 TENDON SHEATH/LIGAMENT APONEUROSIS, US GUIDANCE FOR INJECTION (03/13/2025 8:00 AM EDT) Narrative Vin Amaya MD - 03/13/2025 8:00 AM EDT Vin [...] to verify the correct patient, procedure, equipment, technician support engineer and site/side marked as required. Patient was prepped and draped in the usual sterile fashion. us Vin Amaya MD PROCEDURE/MINOR SURGICAL ORDERA BLES Final Result * XR Cervical Spine AP & LAT Flex/Ext ONLY (02/27/2025 9:31 AM EDT) Narrative OAH - 02/27/2025 9:31 AM EDT This exam was performed in office at [facility] and images reviewed by orthopedic provider. Any findings are documented within ambulatory encounter note on date of service. Brandon Melendez MD IMG DIAGNOSTIC IMAGING ORDER LALY Final Result OA from Last 3 Months Insurance [employer] Care Teams Reproduction Machine Loader Relationship Specialty Start Date End Date Pcp, No PCP - General General Medicine 06/20/24
--- OUTSIDE RECORDS SUMMARY | 2025-05-28 08:08 | XMS_ITS | Continuity of Care Document ---
Author Organization [facility] Address [address] [facility] [address] [place] [address] Insurance Providers Payer Plan Claims Address Claims Phone Policy Number Group Number Relation Employer Guarantor Name Guarantor Guarantor Address Guarantor Phone [employer] [address], [place] [address] tel:[phone] [id number] Blue Cross PPO [id number] Self Tristen Galeana [address] [place] [phone] Problems Unknown Problems Results Test Result Date/Time Value / Unit Interp. Refere united health services Range LIPID PANEL, STANDARD[[id number]] Collected: 11/04/2022 11:37 AM Specimen Received: 11/04/2022 11:38 AM Source: QuestFASTING:YESFASTING: YES CHOLESTEROL, TOTAL [[id number]] 11/06/2022 09:23 PM 128 mg/dL N 200 mg/dL HDL CHOLESTEROL [[id number]] 11/06/2022 09:23 PM 43 mg/dL N > OR = 40 mg/dL TRIGLYCERIDES [[id number]] 11/06/2022 09:2 3 PM 80 mg/dL N 150 mg/dL LDL-CHOLESTEROL [[id number]] 11/06/2022 09:23 PM 69 mg/dL (calc) N Reference range: or = 2 CHD risk factors. LDL-C is now calculated using the Yanick calculation, which is a validated novel method providing better accuracy than the Friedewald equation in the estimation of LDL-C. Aba BREWER et al. TOLU. 2013;310(19): 6633-9640 (http://education.Rkylin.TOMS Shoes/faq/ZWN431) CHOL/HDLC RATIO [[id number]] 11/06/2022 09:23 PM 3.0 (calc) N 5.0 (calc) NON HDL CHOLESTEROL [[id number]] 11/06/2022 09:23 PM 85 mg/dL (calc) N 130 mg/dL (calc) For patients with diabetes p marielle 1 major ASCVD risk factor, treating to a non-HDL-C goal of 100 mg/dL (LDL-C of <70 mg/dL) is considered a therapeutic option. ALBUMIN, RANDOM URINE W/CREA TININE[[id number]] Collected: 11/04/2022 11:37 AM Specimen Received: 11/04/2022 11:38 AM Source: QuestFASTING:YESFASTING: YES CREATININE, RANDOM URINE [[id number]] 11/06/2022 09:23 PM 155 mg/dL N 20-320 mg/dL ALBUMIN, URINE [[id number]] 11/06/2022 09: 23 PM 0.2 mg/dL N See Note: mg/dL Reference Range:Reference Ra ngeNot established ALBUMIN/CREATININE RATIO, RANDOM URINE [[id number]] 11/06/2022 09:23 PM 1 mcg/mg creat N 30 mcg/mg creat The ADA defines abnormalitie s in albuminexcretion as follows: Albuminuria Category Result (mcg/mg creatinine) Normal to Mildly increased OR = 300 The ADA recommends that at least two of threespecimens collected within a 3-6 month period beabnormal before considering a patient to bewithin a diagnostic category. COMPREHENSIVE METABOLIC PANE L[[id number]] Collected: 11/04/2022 11:37 AM Specimen Received: 11/04/2022 11:38 AM Source: QuestFASTING:YESFASTING: YES GLUCOSE [[id number]] 11/06/2022 09:23 PM 94 mg/dL N 65-99 mg/dL Fasting reference interval UREA NITROGEN (BUN) [[id number]] 11/06/2022 09:23 PM 14 mg/dL N 7-25 mg/dL CREATININE [[id number]] 11/06/2022 09:23 PM 1.06 mg/dL N 0.60-1.29 mg/dL EGFR [[id number]] 11/06/2022 09:23 PM 89 mL/min/1.73m2 N > OR = 60 mL/min/1.73m2 The eGFR is based on the CKD -EPI 2020 equation. To calculate the new eGFR from a previous Creatinine or Cystatin Cresult, go to https://www.kidney.org/professionals/kdoqi/gfr%5Fcalculator BUN/CREATININE RATIO [[id number]] 11/06/2022 09:23 PM NOT APPLICABLE (calc) 6-22 (calc) SODIUM [[id number]] 11/06/2022 09:23 PM 139 mmol/L N 135-146 mmol/L POTASSIUM [[id number]] 11/06/2022 09:23 PM 4.2 mmol/L N 3.5-5.3 mmol/L CHLORIDE [[id number]] 11/06/2022 09:23 PM 105 mmol/L N 98-110 mmol/L CARBON DIOXIDE [[id number]] 11/06/2022 09: 23 PM 25 mmol/L N 20-32 mmol/L CALCIUM [[id number]] 11/06/2022 09:23 PM 9.0 mg/dL N 8.6-10.3 mg/dL PROTEIN, TOTAL [[id number]] 11/06/2022 09: 23 PM 6.9 g/dL N 6.1-8.1 g/dL ALBUMIN [[id number]] 11/06/2022 09:23 PM 4.3 g/dL N 3.6-5.1 g/dL GLOBULIN [[id number]] 11/06/2022 09:23 PM 2.6 g/dL (calc) N 1.9-3.7 g/dL (calc) ALBUMIN/GLOBULIN RATIO [[id number]] 11/06/2022 09:23 PM 1.7 (calc) N 1.0-2.5 (calc) BILIRUBIN, TOTAL [[id number]] 11/06/2022 09:23 PM 1.0 mg/dL N 0.2-1.2 mg/dL ALKALINE PHOSPHATASE [[id number]] 11/06/2022 09:23 PM 82 U/L N 36-130 U/L AST [[id number]] 11/06/2022 09:23 PM 15 U/L N 10-40 U/L ALT [[id number]] 11/06/2022 09:23 PM 24 U/L N 9-46 U/L HEMOGLOBIN A1c[[id number]] Collected: 11/04/2022 11:37 AM Specimen Received: 11/04/2022 11:38 AM Source: QuestFASTING:YESFASTING: YES HEMOGLOBIN A1c [[id number]] 11/06/2022 09: 23 PM 8.1 % of total Hgb H 5.7 % of total Hgb For someone without known di abetes, a hemoglobin Z2yoovdw of 6.5% or greater indicates that they [...] of diabetes for children. Clinical PDF Report [id number][ClinicalPDFReport1] Collected: 11/04/2022 11:37 AM Specimen Received: 11/04/2022 11:38 AM Source: QuestFASTING:YESFASTING: YES Clinical PDF Report [id number] [ClinicalPDFReport1] TSERING Allergies, adverse reactions, alerts No known allergies and adverse reactions Medications No administered medications reported Vital Signs No vital signs reported Social History No smoking Hx information available
--- OUTSIDE RECORDS SUMMARY | 2025-05-28 08:08 | XMS_ITS | Encounter Summary ---
Author Organization [facility] Address [address] [place] [address] Care Team Providers Care Waredresser Name Role Phone Pcp, No Primary Care Provider Unavailabl e Encounter Details Date Type Department Care Team (Late st Contact Info) Description 03/05/2025 Scanned Document [facility] [place] [address] [place] [phone] Papito Degroot MD [address] [place], [place] [address] [address] [place] [address] Social History Tobacco Use Types Packs/Day Years [...] on filedocumented in this encounter Care Teams Waredresser Relationship Specialty Start Date End Date Pcp, No PCP - General General Medicine 06/20/24 documented as of this encounter
--- OUTSIDE RECORDS SUMMARY | 2025-05-28 08:08 | XMS_ITS | Encounter Summary ---
Author Organization [facility] Address [address] [place] [address] Care Team Providers Care Lube Technician Name Role Phone Pcp, No Primary Care Provider Unavailabl e Encounter Details Date Type Department Care Team (Late st Contact Info) Description 01/30/2025 Scanned Document [facility] [address] [place] [phone] Alis Schafer [address] [facility] [address] [place] [address] Social History Tobacco Use Types Packs/Day Years [...] on filedocumented in this encounter Care Teams Lube Technician Relationship Specialty Start Date End Date Pcp, No PCP - General General Medicine 06/20/24 documented as of this encounter
--- OUTSIDE RECORDS SUMMARY | 2025-05-28 08:08 | XMS_ITS | Encounter Summary ---
Author Organization [facility] Address [address] [place] [address] Care Team Providers Care Post Splitter Name Role Phone Pcp, No Primary Care Provider Unavailabl e Encounter Details Date Type Department Care Team (Late st Contact Info) Description 09/05/2024 Scanned Document [facility] [address] [phone] Vin Amaya MD [address] [place] [address] Social History Tobacco Use Types Packs/Day Years [...] on file documented as of this encounter Visit Diagnoses Not on filedocumented in this encounter Care Teams Post Splitter Relationship Specialty Start Date End Date Pcp, No PCP - General General Medicine 06/20/24 documented as of this encounter
--- OUTSIDE RECORDS SUMMARY | 2025-05-28 08:09 | XMS_ITS | Encounter Summary ---
Author Organization [facility] Address [address] [place] [address] Care Team Providers Care Compressor Battery Pellets Name Role Phone Pcp, No Primary Care Provider Unavailabl e Encounter Details Date Type Department Care Team (Late st Contact Info) Description 10/14/2024 Scanned Document [facility] [address] [place] [address] Papito Degroot MD [address] [place] [address] [address] [place] [address] Social History Tobacco Use Types Packs/Day Years [...] on filedocumented in this encounter Care Teams Compressor Battery Pellets Relationship Specialty Start Date End Date Pcp, No PCP - General General Medicine 06/20/24 documented as of this encounter
--- OUTSIDE RECORDS SUMMARY | 2025-05-28 08:09 | XMS_ITS | Encounter Summary ---
Author Organization [facility] Address [address] [place] [address] Care Team Providers Care Funeral Home Location Manager Name Role Phone Pcp, No Primary Care Provider Unavailabl e Encounter Details Date Type Department Care Team (Late st Contact Info) Description 05/19/2025 Scanned Document [facility] [address] [place] [phone] Esau Sampson MA [address] [place] [address] Social History Tobacco Use Types Packs/Day Years [...] on filedocumented in this encounter Care Teams Funeral Home Location Manager Relationship Specialty Start Date End Date Pcp, No PCP - General General Medicine 06/20/24 documented as of this encounter
--- OUTSIDE RECORDS SUMMARY | 2025-05-28 08:09 | XMS_ITS | Encounter Summary ---
Author Organization [facility] Address [address] [place] [address] Care Team Providers Care Byproducts Supervisor Name Role Phone Pcp, No Primary Care Provider Unavailabl e Encounter Details Date Type Department Care Team (Late st Contact Info) Description 11/27/2024 Scanned Document [facility] [address] [phone] Ariela Mendez MD [address] [facility] [address] [place] [address] Social History Tobacco Use Types Packs/Day Years [...] on filedocumented in this encounter Care Teams Byproducts Supervisor Relationship Specialty Start Date End Date Pcp, No PCP - General General Medicine 06/20/24 documented as of this encounter
--- OUTSIDE RECORDS SUMMARY | 2025-05-28 08:09 | XMS_ITS | Encounter Summary ---
Author Organization [facility] Address [address] [place] [address] Care Team Providers Care Solar Sales Representative And Assessor Name Role Phone Pcp, No Primary Care Provider Unavailabl e Encounter Details Date Type Department Care Team (Late st Contact Info) Description 04/14/2025 Scanned Document [address] [place] [phone] Primary Care, Scan Social History Tobacco Use Types Packs/Day Years [...] Lefs=50 04/15/25=32 documented as of this encounter Procedures Procedure Name Priority Date/Time Associated Diagnosis Comments HX OUTSIDE ORDER 04/14/2025 1:28 PM EDT documented in this encounter Results * OUTSIDE ORDER (04/14/2025 1:28 PM EDT) us Scan Primary Care HX AMB PROCEDURES Final Result documented in this encounter Visit Diagnoses Not on filedocumented in this encounter Care Teams Solar Sales Representative And Assessor Relationship Specialty Start Date End Date Pcp, No PCP - General General Medicine 06/20/24 documented as of this encounter
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
[2025-06-24 14:18] VITALS: BMI 30.9
[2025-06-26] MEDS: Lactated Ringers 1,000 ML 100 ML IVCONT (12:32)
--- NOTE | 2025-06-26 12:38 | MHC.SHP ---
Pre-Procedural Eval Section A - 24 Hr Update-Section A only Date of Service: 06/26/25 Section B - Complete if H&P > 30 days Chief Complaint: gerd,screening Details of Present Illness: Left upper quadrant abdominal pain Colon cancer screening Mild acid reflux Colon cancer Surgical History (Updated 11/13/24 @ 08:53 by Michelle Meyer CNP) Umbilical hernia Present Medications: see Short Stay Collaborative assessment Allergies: Allergies Allergy/AdvReac Type Severity Reaction Status Date / Time bee venom protein (honey bee) Allergy Severe Anaphylaxis Verified 06/26/25 12:28 Review of Systems Review of Systems Comment: 10 point ROS negative Exam Exam Comment: Gen appear: No acute distress HEENT: no icterus Chest: No overt resp distress Abd: soft, nontender, nondistended Psych: Stable affect, answering questions appropriately Neuro: A/Ox3 noted to move all extremities spontaneously Ext: no peripheral edema Plan Diagnosis/Plan: Unchanged I have reviewed the history and physical and performed a pertinent physical examination on my patient. No changes have occurred unless specified. Time Spent With Patient Time: Total time managing care of this patient today ____ minutes.
[2025-06-26 12:40] VITALS: BP 118/79; PULSE 88; RESP 18; TEMP 36.7; O2SAT 98
[2025-06-26 12:43] LABS: Glucose, Whole Blood 111 mg/dL (60-115)
--- NOTE | 2025-06-26 13:15 | P.OPN-COLO_ITS ---
Colonoscopy Operative Note Operative Note Date of Service: 06/26/25 Narrative: Procedure: Upper endoscopy and colonoscopy Indication: GERD, screening Endoscopist: Alvina Marin MD Anesthesia Provider: Dr Sherita Ratliff Anesthesia type: MAC Instrument: [id number]-[id number] and [id number]-[id number] EGD Procedure:?? The procedure, indications, preparation and potential complications were reviewed with the patient, who indicated understanding and gave written informed consent to proceed. The endoscope was introduced through the mouth, and advanced to the 2nd part of the duodenum. The mucosa was carefully examined on slow withdrawal of the endoscope. The patient tolerated the procedure well. There were no immediate complications.? EGD Findings:? * Esophagus:? Linear ulcerations measuring 2 cm crossing the tops of mucosal folds were noted in lower esophagus. The GE junction was at 39 cm displaced by a hiatal hernia with the diaphragmatic hernia at 42 cm. * Stomach:? Erythema and erosions in the antrum. Retroflexion was performed in the cardia that showed Hill grade II hiatal hernia. A few polyps were noted in the fundus of the stomach. Cold forceps polypectomy was performed for a few of these. Random cold forceps biopsies were taken from the stomach. * Duodenum:? Normal duodenal mucosa. Cold forceps biopsies were taken from the duodenal bulb and 2nd portion of the duodenum to rule out celiac sprue. Colonoscopy Procedure:? The patient was then turned for the colonoscopy. A digital rectal exam was performed which was normal.? A distal attachment cap was affixed to the tip of the scope and the colonoscope was then inserted through the anus and advanced through the colon and advanced to the cecum at 80 cm and terminal ileum.? Appendiceal orifice and ileocecal valve were identified. Mucosa was carefully examined under high definition white light as the instrument was slowly withdrawn in a retrograde panoramic fashion. Retroflexion was performed in rectum. The procedure was not difficult. The quality of the prep was BBPS: 2+3+3 = adequate Withdrawal time 8 minutes Limitations: No limitations Findings: Mucosa: Normal colon and terminal ileum mucosa. Protruding lesions: * Small internal hemorrhoids without stigmata of recent bleeding. Impression: 1. Grade C esophagitis 2. Hiatal hernia 3. Gastritis (biopsy) 4. Gastric polyps (biopsy) 5. Normal duodenum (biopsy) 6. Normal colon and terminal ileum mucosa 7. Internal hemorrhoids Recommendations:?? * Follow-up path results * Avoid NSAIDs * H Pylori treatment if biopsies + * Start omeprazole 20 mg BID x 8 weeks and then once daily * Repeat EGD to be set up in a few months to ensure healing. * Repeat colonoscopy for CRC screening in 10 years.
[2025-06-26 13:20] VITALS: BP 107/73; PULSE 103; RESP 16; TEMP 36.4; O2SAT 97
[2025-06-26 13:35] VITALS: BP 126/72; PULSE 89; RESP 16; O2SAT 98
[2025-06-26 13:41] VITALS: BP 110/66; PULSE 78; RESP 14; TEMP 36.6; O2SAT 98
== END 2025-06-26 14:06 | disposition home or self-care (01) ==
PROVIDERS: PCP Internal Medicine; Visit Provider Internal Medicine
PROC: (CPT 45378; principal; 2025-06-26 13:20)
DX: Z12.11 Encounter for screening for malignant neoplasm of colon (principal); K21.00 Gastro-esophageal reflux disease with esophagitis, without bleeding; E11.9 Type 2 diabetes mellitus without complications; R10.12 Left upper quadrant pain; K31.7 Polyp of stomach and duodenum; K64.8 Other hemorrhoids; K44.9 Diaphragmatic hernia without obstruction or gangrene; K29.70 Gastritis, unspecified, without bleeding
CPT/HCPCS: 45378; 43239; 82947; 88305; 88342; J2003; J2704

== ENCOUNTER → 2025-06-26 11:59 | Outpatient (BNV) | payer BC, SELFPAY | PROVIDERS: PCP Internal Medicine; Visit Provider Internal Medicine | DX: Z12.11 Encounter for screening for malignant neoplasm of colon (principal); K64.8 Other hemorrhoids; K21.00 Gastro-esophageal reflux disease with esophagitis, without bleeding; K29.70 Gastritis, unspecified, without bleeding; K31.7 Polyp of stomach and duodenum | CPT/HCPCS: 43239; 45378 ==

== ENCOUNTER 2025-06-30 13:09 | Outpatient (AMB) | payer BC, SELFPAY ==
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
[2025-06-30 13:34] VITALS: BP 141/79; PULSE 92; BMI 31.5
--- OUTSIDE RECORDS SUMMARY | 2025-06-30 14:18 | XMS_ITS | Continuity of Care Document ---
Author Organization Formerly [facility] Address [address] [place] [address] Insurance Providers Payer Plan Claims Address Claims Phone Policy Number Group Number Relation Employer Guarantor Name Guarantor Guarantor Address Guarantor Phone [employer] [address], [place] [address] tel:[phone] [id number] Blue [employer] PPO [id number] Self Tristen Galeana [address] [place] [id number] Problems Unknown Problems Results Test Result Date/Time Value / Unit Interp. Refere [facility] Range LIPID PANEL, STANDARD[[id number]] Collected: 11/04/2022 11:37 AM Specimen Received: 11/04/2022 11:38 AM Source: [facility]FASTING:YESFASTING: YES CHOLESTEROL, TOTAL [[id number]] 11/06/2022 09:23 PM 128 mg/dL N 200 mg/dL HDL CHOLESTEROL [[id number]] 11/06/2022 09:23 PM 43 mg/dL N > OR = 40 mg/dL TRIGLYCERIDES [[id number]] 11/06/2022 09:2 3 PM 80 mg/dL N 150 mg/dL LDL-CHOLESTEROL [[id number]] 11/06/2022 09:23 PM 69 mg/dL (calc) N Reference range: or = 2 CHD risk factors. LDL-C is now calculated using the Yanick calculation, which is a validated novel method providing better accuracy than the Friedewald equation in the estimation of LDL-C. Aba BREWER et al. TOLU. 2013;310(19): 4173-8653 (http://education.MedeAnalytics.DoubleDutch/faq/GUN321) CHOL/HDLC RATIO [[id number]] 11/06/2022 09:23 PM 3.0 (calc) N 5.0 (calc) NON HDL CHOLESTEROL [[id number]] 11/06/2022 09:23 PM 85 mg/dL (calc) N 130 mg/dL (calc) For patients with diabetes p marielle 1 major ASCVD risk factor, treating to a non-HDL-C goal of 100 mg/dL (LDL-C of <70 mg/dL) is considered a therapeutic option. ALBUMIN, RANDOM URINE W/CREA TININE[[id number]] Collected: 11/04/2022 11:37 AM Specimen Received: 11/04/2022 11:38 AM Source: [facility]FASTING:YESFASTING: YES CREATININE, RANDOM URINE [[id number]] 11/06/2022 09:23 PM 155 mg/dL N 20-320 mg/dL ALBUMIN, URINE [[id number]] 11/06/2022 09: 23 PM 0.2 mg/dL N See Note: mg/dL Reference Range:Reference Ra ngeNot established ALBUMIN/CREATININE RATIO, RANDOM URINE [[id number]] 11/06/2022 09:23 PM 1 mcg/mg creat N 30 mcg/mg creat The ADA defines abnormalitie s in albuminexcretion as follows: Albuminuria Category Result (mcg/mg creatinine) Normal to Mildly increased OR = 300 The ADA recommends that at least two of threespecimens collected within a 3-6 month period beabnormal before considering a patient to bewithin a diagnostic category. COMPREHENSIVE METABOLIC PANE L[[id number]] Collected: 11/04/2022 11:37 AM Specimen Received: 11/04/2022 11:38 AM Source: [facility]FASTING:YESFASTING: YES GLUCOSE [[id number]] 11/06/2022 09:23 PM 94 mg/dL N 65-99 mg/dL Fasting reference interval UREA NITROGEN (BUN) [[id number]] 11/06/2022 09:23 PM 14 mg/dL N 7-25 mg/dL CREATININE [[id number]] 11/06/2022 09:23 PM 1.06 mg/dL N 0.60-1.29 mg/dL EGFR [[id number]] 11/06/2022 09:23 PM 89 mL/min/1.73m2 N > OR = 60 mL/min/1.73m2 The eGFR is based on the CKD -EPI 2020 equation. To calculate the new eGFR from a previous Creatinine or Cystatin Cresult, go to https://www.kidney.org/professionals/kdoqi/gfr%5Fcalculator BUN/CREATININE RATIO [[id number]] 11/06/2022 09:23 PM NOT APPLICABLE (calc) 6-22 (calc) SODIUM [[id number]] 11/06/2022 09:23 PM 139 mmol/L N 135-146 mmol/L POTASSIUM [[id number]] 11/06/2022 09:23 PM 4.2 mmol/L N 3.5-5.3 mmol/L CHLORIDE [[id number]] 11/06/2022 09:23 PM 105 mmol/L N 98-110 mmol/L CARBON DIOXIDE [[id number]] 11/06/2022 09: 23 PM 25 mmol/L N 20-32 mmol/L CALCIUM [[id number]] 11/06/2022 09:23 PM 9.0 mg/dL N 8.6-10.3 mg/dL PROTEIN, TOTAL [[id number]] 11/06/2022 09: 23 PM 6.9 g/dL N 6.1-8.1 g/dL ALBUMIN [[id number]] 11/06/2022 09:23 PM 4.3 g/dL N 3.6-5.1 g/dL GLOBULIN [[id number]] 11/06/2022 09:23 PM 2.6 g/dL (calc) N 1.9-3.7 g/dL (calc) ALBUMIN/GLOBULIN RATIO [[id number]] 11/06/2022 09:23 PM 1.7 (calc) N 1.0-2.5 (calc) BILIRUBIN, TOTAL [[id number]] 11/06/2022 09:23 PM 1.0 mg/dL N 0.2-1.2 mg/dL ALKALINE PHOSPHATASE [[id number]] 11/06/2022 09:23 PM 82 U/L N 36-130 U/L AST [[id number]] 11/06/2022 09:23 PM 15 U/L N 10-40 U/L ALT [[id number]] 11/06/2022 09:23 PM 24 U/L N 9-46 U/L HEMOGLOBIN A1c[[id number]] Collected: 11/04/2022 11:37 AM Specimen Received: 11/04/2022 11:38 AM Source: [facility]FASTING:YESFASTING: YES HEMOGLOBIN A1c [[id number]] 11/06/2022 09: 23 PM 8.1 % of total Hgb H 5.7 % of total Hgb For someone without known di abetes, a hemoglobin C7lwwzsr of 6.5% or greater indicates that they [...] of diabetes for children. Clinical PDF Report [id number][ClinicalPDFReport1] Collected: 11/04/2022 11:37 AM Specimen Received: 11/04/2022 11:38 AM Source: [facility]FASTING:YESFASTING: YES Clinical PDF Report [id number] [ClinicalPDFReport1] TSERING Allergies, adverse reactions, alerts No known allergies and adverse reactions Medications No administered medications reported Vital Signs No vital signs reported Social History No smoking Hx information available
--- OUTSIDE RECORDS SUMMARY | 2025-06-30 14:18 | XMS_ITS | Encounter Summary ---
Author Organization [facility] Address [address] [place] [address] Care Team Providers Care Outside Plant Cable Engineer Name Role Phone Pcp, No Primary Care Provider Unavailabl e Encounter Details Date Type Department Care Team (Late st Contact Info) Description 04/14/2025 Scanned Document Orthopedic [address] [phone] Brandon Melendez MD [address] [place] [id number] Social History Tobacco Use Types Packs/Day Years [...] Care Team (Late st Contact Info) Description 07/31/2025 7:45 AM EST Office Visit Orthopedic [address] [place] [phone] Brandon Melendez MD [address] [place] [phone] 11/17/2025 7:30 AM EDT Office Visit Orthopedic [facility] [address] [place] [phone] Ariela Mendez MD [address] [facility] [address] [place] [address] documented as of this encounter Goals Goal [...] on filedocumented in this encounter Care Teams Outside Plant Cable Engineer Relationship Specialty Start Date End Date Pcp, No PCP - General General Medicine 06/20/24 documented as of this encounter
--- OUTSIDE RECORDS SUMMARY | 2025-06-30 14:18 | XMS_ITS | Encounter Summary ---
Author Organization [facility] Address [address] [place] [address] Care Team Providers Care Production Posting Clerk Name Role Phone Pcp, No Primary Care Provider Unavailabl e Encounter Details Date Type Department Care Team (Late st Contact Info) Description 05/19/2025 Scanned Document Orthopedic [address] [phone] Esau Sampson MA [address] [place] [address] Social History Tobacco Use Types Packs/Day Years [...] 07/31/2025 7:45 AM EST Office Visit Orthopedic [address] [place] [phone] Brandon Melendez MD [address] [place] [phone] 11/17/2025 7:30 AM EDT Office Visit Orthopedic [address] [place] [address] Ariela Mendez MD [address] [facility] [address] [place] [address] documented as of this encounter Goals Goal [...] on filedocumented in this encounter Care Teams Production Posting Clerk Relationship Specialty Start Date End Date Pcp, No PCP - General General Medicine 06/20/24 documented as of this encounter
--- OUTSIDE RECORDS SUMMARY | 2025-06-30 14:18 | XMS_ITS | Encounter Summary ---
Author Organization [facility] Address [address] [place] [address] Care Team Providers Care Field Crop Grower Name Role Phone Pcp, No Primary Care Provider Unavailabl e Encounter Details Date Type Department Care Team (Late st Contact Info) Description 10/14/2024 Scanned Document Orthopedic [facility] [address] [place] [address] Papito Degroot MD [address] [place] [address] [address] [place] [address] Social History Tobacco Use Types Packs/Day Years [...] 07/31/2025 7:45 AM EST Office Visit Orthopedic [address] [place] [address] Brandon Melendez MD [address] [place] [phone] 11/17/2025 7:30 AM EDT Office Visit Orthopedic [facility] [address] [facility] [address] [place] [address] Ariela Mendez MD [address] [facility] [address] [place] [address] documented as of this encounter Visit Diagnoses Not on filedocumented in this encounter Care Teams Field Crop Grower Relationship Specialty Start Date End Date Pcp, No PCP - General General Medicine 06/20/24 documented as of this encounter
--- OUTSIDE RECORDS SUMMARY | 2025-06-30 14:18 | XMS_ITS | Encounter Summary ---
Author Organization [facility]ly [facility] Address [address] [place] [address] Care Team Providers Care Automotive Brake Specialist Name Role Phone Pcp, No Primary Care Provider Unavailabl e Encounter Details Date Type Department Care Team (Late st Contact Info) Description 03/05/2025 Scanned Document Orthopedic [facility] [address] [place] [address] Papito Degroot MD [address] [place] [address] [address] [place] [address] Social History Tobacco Use Types Packs/Day Years [...] 07/31/2025 7:45 AM EST Office Visit Orthopedic [address] [place] [address] Brandon Melendez MD [address] [place] [address] [phone] 11/17/2025 7:30 AM EDT Office Visit Orthopedic [facility] 31 [facility] [address] [place] [phone] Ariela Mendez MD 31 [facility] 100 [place] [address] documented as of this encounter Goals Goal [...] on filedocumented in this encounter Care Teams Automotive Brake Specialist Relationship Specialty Start Date End Date Pcp, No PCP - General General Medicine 06/20/24 documented as of this encounter
--- OUTSIDE RECORDS SUMMARY | 2025-06-30 14:18 | XMS_ITS | Encounter Summary ---
Author Organization [facility] Address [address] [place] [address] Care Team Providers Care Development Scientist Name Role Phone Pcp, No Primary Care Provider Unavailabl e Encounter Details Date Type Department Care Team (Late st Contact Info) Description 06/02/2025 CC Surg Order Orthopedic [address] [phone] Vin Amaya MD [address] [place] [phone] Social History Tobacco Use Types Packs/Day Years [...] 07/31/2025 7:45 AM EST Office Visit Orthopedic [address] [phone] Brandon Melendez MD [address] [place] [address] [phone] 11/17/2025 7:30 AM EDT Office Visit Orthopedic [address] 100 [place] [phone] Ariela Mendez MD 31 [facility] 100 [place] [address] documented as of this encounter Goals Goal [...] on filedocumented in this encounter Care Teams Development Scientist Relationship Specialty Start Date End Date Pcp, No PCP - General General Medicine 06/20/24 documented as of this encounter
--- OUTSIDE RECORDS SUMMARY | 2025-06-30 14:18 | XMS_ITS | Clinical Summary ---
Author Organization [facility] Address [address] [place] [address] Care Team Providers Care Cone Examiner Name Role Phone Pcp, No Primary Care [...] Encounters Date Type Department Care Team Description 06/02/2025 CC Surg Order Orthopedic [facility] 31 [facility] 100 [place] [address] Vin Amaya MD 05/22/2025 2:30 PM EST Office Visit Orthopedic [facility] [address], [place] [address] Brandon Melendez MD Cervicalgia (Primary Dx) 05/22/2025 10:30 AM EST Office Visit Orthopedic [address] [address] Vin Amaya MD Adhesive capsulitis of left shoulder (Primary Dx); Biceps tendinitis of left upper extremity 05/19/2025 9:00 AM EST [facility] [address] [place] [phone] Ariela Mendez MD Contusion of right knee, initial encounter (Primary Dx) 05/19/2025 Scanned Document [facility] [address] [place] [address] Esau aSmpson MA 05/05/2025 7:54 AM EDT - 05/05/2025 11:59 PM EDT Hospital Encounter [facility] [address] [facility] [address] [place] [phone] Brandon Melendez MD Cervical disc disorder at C5-C6 level with radiculopathy; Radiculopathy, cervical region Discharge Disposition: Home or Self Care 04/20/2025 7:00 AM EDT Treatment [facility] [address] [place] [address] Ariela Mendez MD Armstrong, Natalie M, PT Chronic pain of right knee (Primary Dx) 04/17/2025 11:00 AM EDT [facility] [address] [phone] Papito Degroot MD Spondylosis of lumbosacral region without myelopathy or radiculopathy (Primary Dx); Sacroiliitis; Bulge of lumbar disc without myelopathy; Radiculopathy, lumbosacral region 04/17/2025 8:30 AM EDT [facility] [address] [address] Vin Amaya MD Biceps tendinitis of left upper extremity (Primary Dx); Adhesive capsulitis of left shoulder 04/15/2025 7:30 AM EDT [facility] [address] [place] [phone] Ariela Mendez MD McCrystal, Patrick, PT Chronic pain of right knee (Primary Dx) 04/14/2025 Scanned Document [address] [place] [phone] Primary Care, Scan 04/14/2025 Scanned Document [facility] [address] [place] [facility] [address] Brandon Melendez MD 04/10/2025 7:00 AM EDT Treatment [facility] [address] [place] [address] Ariela Mendez, Eliecer Edwards, PT Chronic pain of right knee (Primary Dx) 04/08/2025 7:00 AM EDT Treatment [facility] [address] [place] [address] Ariela Mendez MD Soderquist, Jonathan, PT Chronic pain of right knee (Primary Dx) 04/03/2025 7:00 AM EDT Treatment [facility] [address] [place] [address] Ariela Mendez MD Soderquist, Jonathan, PT Chronic pain of right knee (Primary Dx) 04/01/2025 7:00 AM EDT Treatment [facility] [address] [place] [address] Ariela Mendez, Eliecer Edwards, PT Chronic pain of right knee (Primary Dx) from Last 3 Months Social History Tobacco [...] 07/31/2025 7:45 AM EST [facility] [address] [address] Brandon Melendez MD [address] [place] [address] 11/17/2025 7:30 AM EDT Office Visit Orthopedic [address] [phone] Ariela Mendez MD [address] [place] [address] Health Maintenance Due Date Last Done Comments Hepatitis C Virus Screening 1978 HIV Screening 09/14/1991 DTaP/Tdap/Td Vaccines (1 - Tdap) 1997 Hepatitis B Vaccines (1 of 3 - 19+ 3-dose series) 1997 Colonoscopy 09/14/2023 COVID-19 Vaccine (3 - 2024-2 6 season) [...] PT LTG 3 Physical Therapy No Eros Morris, PT Note: Squat without pain 04/15/25 pt able to squat to 90 degrees before pain is present Sit/drive 2 hours without pain 04/15/25 1 hour Lefs=50 04/15/25=32 Procedures Procedure Name Priority Date/Time Associated Diagnosis Comments MRI CERVICAL SPINE W/O CONTRAST Routine 05/05/2025 9:04 AM EDT Cervical disc disorder at C5-C6 level with radiculopathy Radiculopathy, cervical region HX OUTSIDE ORDER 04/14/2025 1:28 PM EDT from Last 3 Months Results * MRI Cervical spine w/o contrast (05/05/2025 9:04 AM EDT) Anatomical Region Laterality Modality C-spine Magnetic Resonan ce 05/05/2025 10:2 2 AM EDT Impressions 05/05/2025 12:56 PM EDT Limited views of the spinal cord signal due to artifacts within these limitations; Mild degenerative changes with mild bilateral C4-5 and C5-6 neural foraminal stenosis. Signed by: Burt Guerra 05/05/2025 12:56 PM EDT EXAM: MRI CERVICAL [...] C5-6 neuralforaminal stenosis. Signed by: Burt Partida Brandon Melendez MD [facility] MRI ORDERABLES Final Res ult * OUTSIDE ORDER (04/14/2025 1:28 PM EDT) Scan Primary Care HX AMB PROCEDURES Final Result from Last 3 Months Insurance [employer]/ [facility] [employer] [facility] [employer] Care Teams Cone Examiner Relationship Specialty Start Date End Date Pcp, No PCP - General General Medicine 06/20/24
--- OUTSIDE RECORDS SUMMARY | 2025-06-30 14:18 | XMS_ITS | Encounter Summary ---
Author Organization [facility] Address [address] [place] [address] Care Team Providers Care Boat Cleaner Name Role Phone Pcp, No Primary Care Provider Unavailabl e Encounter Details Date Type Department Care Team (Late st Contact Info) Description 09/05/2024 Scanned Document Orthopedic [address] [phone] Vin Amaya MD [address] [place] [phone] Social History Tobacco Use Types Packs/Day Years [...] 07/31/2025 7:45 AM EST Office Visit Orthopedic [address] [phone] Brandon Melendez MD [address] [place] [phone] 11/17/2025 7:30 AM EDT Office Visit Orthopedic [address] [phone] Ariela Mendez MD 31 [facility] 100 [place] [address] documented as of this encounter Visit Diagnoses Not on filedocumented in this encounter Care Teams Boat Cleaner Relationship Specialty Start Date End Date Pcp, No PCP - General General Medicine 06/20/24 documented as of this encounter
--- OUTSIDE RECORDS SUMMARY | 2025-06-30 14:18 | XMS_ITS | Encounter Summary ---
Author Organization [facility] Address [address] [place] [address] Care Team Providers Care Muffle Worker Name Role Phone Pcp, No Primary Care Provider Unavailabl e Encounter Details Date Type Department Care Team (Late st Contact Info) Description 04/14/2025 Scanned Document [facility] [address] [facility] [address] [place] [phone] Primary Care, Scan Social History Tobacco Use [...] 07/31/2025 7:45 AM EST Office Visit Orthopedic [address] [address] Brandon Melendez MD [address] [place] [address] 11/17/2025 7:30 AM EDT Office Visit Orthopedic [facility] [address] [phone] Ariela Mendez MD [address] [address] documented as of this encounter Goals Goal [...] on filedocumented in this encounter Care Teams Muffle Worker Relationship Specialty Start Date End Date Pcp, No PCP - General General Medicine 06/20/24 documented as of this encounter
--- OUTSIDE RECORDS SUMMARY | 2025-06-30 14:18 | XMS_ITS | Encounter Summary ---
Author Organization [facility] Address [address] [place] [address] Care Team Providers Care Chief Nursing Officer Name Role Phone Pcp, No Primary Care Provider Unavailabl e Encounter Details Date Type Department Care Team (Late st Contact Info) Description 01/30/2025 Scanned Document Orthopedic [address] [place] [phone] Alis Schafer 499 [facility] [address] [place] [address] Social History Tobacco Use Types Packs/Day Years [...] 07/31/2025 7:45 AM EST Office Visit Orthopedic [address] [place] [phone] Brandon Melendez MD [address] [place] [address] [phone] 11/17/2025 7:30 AM EDT Office Visit Orthopedic [facility] 31 [facility] [address] [place] [address] Ariela Mendez MD 31 [facility] 100 [place] [address] documented as of this encounter Goals Goal Patient Goal Type Associated Problems Recent Progress Patient-Stated? Author PT LTG 1 Physical Therapy No Eliecer Betancourt, JANELLE Note: Pt will demonstrate independence with HEP in 12 weeks 04/15/25 mostly met PT LTG 2 Physical Therapy No Eliecer Betancourt, JANELLE Note: Pt will improve standing tolerance to 2 hour to improve house chores in 6 weeks 04/15/25 mostly met documented as of this encounter Visit Diagnoses Not on filedocumented in this encounter Care Teams Chief Nursing Officer Relationship Specialty Start Date End Date Pcp, No PCP - General General Medicine 06/20/24 documented as of this encounter
--- OUTSIDE RECORDS SUMMARY | 2025-06-30 14:18 | XMS_ITS | Encounter Summary ---
Author Organization [facility] Address [address] [place] [address] Care Team Providers Care Mortgage Processing Clerk Name Role Phone Pcp, No Primary Care Provider Unavailabl e Encounter Details Date Type Department Care Team (Late st Contact Info) Description 11/27/2024 Scanned Document Orth[facility] [address] [phone] Ariela Mendez MD [address] [place] [phone] Social History Tobacco Use Types Packs/Day Years [...] 07/31/2025 7:45 AM EST Office Visit Orthopedic [address] [place] [address] Brandon Melendez MD [address] [place] [address] 11/17/2025 7:30 AM EDT Office Visit Orthopedic [facility] [address] [phone] Ariela Mendez MD 31 [facility] 100 [place] [address] documented as of this encounter Visit Diagnoses Not on filedocumented in this encounter Care Teams Mortgage Processing Clerk Relationship Specialty Start Date End Date Pcp, No PCP - General General Medicine 06/20/24 documented as of this encounter
--- OUTSIDE RECORDS SUMMARY | 2025-06-30 14:18 | XMS_ITS | Clinical Summary ---
Author Organization [facility] Address [address] [place] [address] Phone Care Team Providers Care Saddle Lining Stitcher Name Role Phone Shameka Don DO Primary [...] Surgery Date Site/Laterality Comments VASECTOMY 2006 PROCEDURE: AR VASECTOMY UNI/BI SPX W/POSTOP SEMEN EXAMS Medical [...] Orientation Straight 06/02/2024 4: 52 PM EST Last Filed Vital Signs Vital [...] Insurance [employer] Care Teams Saddle Lining Stitcher Relationship Specialty Start Date End Date Shameka Don DO [address] [place] [address] [address] [place] [address] PCP - General Internal Medicine 06/02/24
--- OUTSIDE RECORDS SUMMARY | 2025-06-30 14:18 | XMS_ITS | Encounter Summary ---
Author Organization [facility] Address [address] [place] [address] Care Team Providers Care Business Integration Manager Name Role Phone Pcp, No Primary Care Provider Unavailabl e Encounter Details Date Type Department Care Team (Late st Contact Info) Description 03/05/2025 Scanned Document Orthopedic [facility] [address] [place] [address] Papito Degroot MD [address] [place] [address] [address] [place] [address] Social History Tobacco Use Types Packs/Day Years [...] 07/31/2025 7:45 AM EST Office Visit Orthopedic [address] [place] [address] Brandon Melendez MD [address] [place] [address] [phone] 11/17/2025 7:30 AM EDT Office Visit Orthopedic [facility] 31 [facility] [address] [place] [address] Ariela Mendez MD [address] [facility] 100 [place] [address] documented as of this encounter Goals Goal [...] on filedocumented in this encounter Care Teams Business Integration Manager Relationship Specialty Start Date End Date Pcp, No PCP - General General Medicine 06/20/24 documented as of this encounter
== END 2025-06-30 14:07 | disposition home or self-care (01) ==
LOC: HO.HGI 13:10
PROVIDERS: PCP Internal Medicine; Visit Provider Nurse Practitioner Family
DX: K20.80 Other esophagitis without bleeding (principal); K64.8 Other hemorrhoids; G89.18 Other acute postprocedural pain
CPT/HCPCS: 99213